=== PATIENT | male | born 1980 | race Caucasian/White ===

== ENCOUNTER 2018-08-15 16:21 | Inpatient (IN) ==
[2018-08-15] MEDS ORDERED: ceFAZolin 2 GM Premix Inj 2 GM/50 ML PIGGYBACK IV.SIG ONE (16:46)
[2018-08-15] MEDS ORDERED: fentaNYL Citrate Inj 100 MCG/2 ML Ampul IV.PUSH ONE ×3 (16:55→18:53)
[2018-08-15] MEDS ORDERED: Sod Chloride 0.9% Inj 1,000 ML IV.SIG SCH (17:00)
[2018-08-15 17:42] LABS: Baso % (Auto) 1.2 % (0.0-2.0); Eos # (Auto) 0.1 th/mm3 (0.0-0.4); Eos % (Auto) 1.7 % (0.0-4.0); Hematocrit 36.5 % (39.0-51.0); Hemoglobin 12.9 gm/dL (13.0-17.0); Lymph # (Auto) 1.2 th/mm3 (1.0-4.8); Lymph % (Auto) 32.6 % (9.0-44.0); Mean Corpuscular HGB Conc 35.3 % (32.0-36.0); Mean Corpuscular Hemoglobin 34.7 pg (27.0-34.0); Mean Corpuscular Volume 98.2 fL (80.0-100.0); Mean Platelet Volume 9.1 fL (7.0-11.0); Mono # (Auto) 0.3 th/mm3 (0.0-0.9); Neut % (Auto) 56.5 % (16.0-70.0); Platelet Count 182 th/mm3 (150-450); Red Blood Count 3.71 mil/mm3 (4.50-5.90); Red Cell Distribution Width 15.5 % (11.6-17.2); White Blood Count 3.6 th/mm3 (4.0-11.0)
--- NOTE | 2018-08-15 17:47 | ED ---
HPI General Chief Complaint: Fall Stated Complaint: Fall/injury Time Seen by Provider: 08/15/18 16:36 History of Present Illness HPI Narrative: Patient presents to the emergency department status post fall. Patient reportedly fell off of a ladder approximately 67 feet. He states that he did not hit his head he denies LOC. That he broke the fall with his right hand and his left lower extremity. He was given 10 mg IV morphine by EMS prior to ER arrival. He is complaining of pain in his affected left lower extremity. He denies chest pain, abdominal pain, neck or back pain. Related Data Home Medications Medication Instructions Recorded Confirmed No Known Home Medications 08/15/18 08/15/18 Allergies Allergy/AdvReac Type Severity Reaction Status Date / Time azithromycin Allergy Mild HIVES Verified 08/15/18 16:54 Review of Systems ROS: all other systems reviewed are negative [facility] Medical History Medical History ADHD (Acute) Surgical History Surgical History No history of previous surgery (Acute) Social History Social History Second Hand Smoke Exposure: No Smoking Status: Unknown if ever smoked How Often Do You Have a Drink Containing Alcohol: 4 or more times a week Recent Travel in [facility] within the Last 8 Weeks: No Recent Out of Country Travel within the Last 8 Weeks: No Immunization History Tetanus Immunization: <5 Years Tetanus Immunization Year if Known: 2014 Exam Narrative Exam Narrative: GENERAL: Discomfort secondary to pain SKIN: Focused skin assessment warm/dry. HEAD: Atraumatic. Normocephalic. EYES: Pupils equal and round. No scleral icterus. No injection or drainage. Extraocular muscles intact bilaterally. ENT: No nasal bleeding or discharge. Mucous membranes pink and moist. NECK: Trachea midline. No JVD. No focal C-spine tenderness CARDIOVASCULAR: Regular rate and rhythm. No murmur appreciated. RESPIRATORY: No accessory muscle use. Clear to auscultation. Breath sounds equal bilaterally. GASTROINTESTINAL: Abdomen soft, non-tender, nondistended. Hepatic and splenic margins not palpable. MUSCULOSKELETAL: Left lower extremity: Sensation intact, positive DP pulse, approx 4 in lac limited range of motion secondary to pain. Lac extends anterior mid ankle-> lat malleoli-> post aspect of ankle. No focal T or L-spine tenderness. NEUROLOGICAL: Awake and alert. No obvious cranial nerve deficits. Motor grossly within normal limits. Normal speech. PSYCHIATRIC: Appropriate mood and affect; insight and judgment normal. Course Initial Documented Vital Signs Temperature 98.8 F 08/15/18 16:30 Pulse Rate 76 08/15/18 16:30 Respiratory Rate 16 08/15/18 16:30 Blood Pressure 108/73 08/15/18 16:30 Pulse Oximetry 96 08/15/18 16:30 Last Documented Vital Signs Temperature 98.9 F 08/16/18 04:00 Pulse Rate 103 H 08/16/18 06:00 Respiratory Rate 12 08/16/18 06:16 Blood Pressure 147/91 H 08/16/18 06:00 Pulse Oximetry 94 L 08/16/18 06:00 Medical Decision Making MDM Narrative Medical decision making narrative: Patient presents to the ER status post fall. Patient placed on cardiac rehab nurse, continuous pulse ox, IV access obtained. C -collar placed. Head and C spine CT, chest/pelvis/R hand/LLE (knee-> foot)X-ray , 2 g IV ancef ordered, wound irrigated and extremity splinted by overhead crane technician, his tetanus is up to date. Discussed case with Dr Wilson, advised of patient but Xrays were pending at the time of my call. 1831: Patient given 40MEQ po KCl. Another 25mcg IV fentanyl and NS at 125cc/hr. Discussed with trauma attending, who advised he bernabe ladmit patient. Request that I get CT chest and abd/pelvis which I have ordered. Discussed with Dr Wilson, who request that I keep patient NPO and she will evaluate. Patient's corrected calcium is low, ordered 1gram IV calcium gluconate. 1950: Patient taken to CT scan and will be transported to OR immediately after. Trauma surg will f/u on CT results as well as ensure patient's electrolytes are repleted (I ordered them and spoke with him about this as patient apparently transported to OR before they were given). Medical Screen Exam Complete: Yes Emergency Medical Condition: Yes Lab Data Result diagrams: 08/15/18 17:00 08/15/18 17:00 Lab Results 08/15/18 08/15/18 08/15/18 Range/Units 17:00 17:00 17:00 WBC 3.6 L (4.0-11.0) th/mm3 RBC 3.71 L (4.50-5.90) mil/mm3 Hgb 12.9 L (13.0-17.0) gm/dL Hct 36.5 L (39.0-51.0) % MCV 98.2 (80.0-100.0) fL MCH 34.7 H (27.0-34.0) pg MCHC 35.3 (32.0-36.0) % RDW 15.5 (11.6-17.2) % Plt Count 182 (150-450) th/mm3 MPV 9.1 (7.0-11.0) fL Neut % (Auto) 56.5 (16.0-70.0) % Lymph % (Auto) 32.6 (9.0-44.0) % [place] % (Auto) 8.0 (0.0-8.0) % Eos % (Auto) 1.7 (0.0-4.0) % Baso % (Auto) 1.2 (0.0-2.0) % Neut # (Auto) 2.0 (1.8-7.7) th/mm3 Lymph # (Auto) 1.2 (1.0-4.8) th/mm3 [place] # (Auto) 0.3 (0.0-0.9) th/mm3 Eos # (Auto) 0.1 (0.0-0.4) th/mm3 Baso # (Auto) 0.0 (0.0-0.2) th/mm3 WBC Differential . Differential Comment Auto diff final PT (9.8-11.6) sec INR Ratio APTT (24.3-30.1) sec Sodium 148 H (136-145) meq/L Potassium 3.2 L (3.5-5.1) meq/L Chloride 118 H (98-107) meq/L Carbon Dioxide 24.8 (21.0-32.0) meq/L Anion Gap 5 (5-15) meq/L BUN 8 (7-18) mg/dL Creatinine 0.67 (0.60-1.30) mg/dL Estimated GFR Greater than 89 (>89) mL/min Random Glucose 84 (74-106) mg/dL Calcium 5.9 L* (8.5-10.1) mg/dL Prot Corrected Calcium 6.9 L* (8.5-10.1) mg/dL Magnesium 1.6 (1.5-2.5) mg/dL Total Bilirubin 0.3 (0.2-1.0) mg/dL AST 21 (15-37) U/L ALT 26 (12-78) U/L Alkaline Phosphatase 48 (45-117) U/L Total Protein 4.9 L (6.4-8.2) g/dL Albumin 2.8 L (3.4-5.0) g/dL 08/15/18 Range/Units 18:20 WBC (4.0-11.0) th/mm3 RBC (4.50-5.90) mil/mm3 Hgb (13.0-17.0) gm/dL Hct (39.0-51.0) % MCV (80.0-100.0) fL MCH (27.0-34.0) pg MCHC (32.0-36.0) % RDW (11.6-17.2) % Plt Count (150-450) th/mm3 MPV (7.0-11.0) fL Neut % (Auto) (16.0-70.0) % Lymph % (Auto) (9.0-44.0) % [place] % (Auto) (0.0-8.0) % Eos % (Auto) (0.0-4.0) % Baso % (Auto) (0.0-2.0) % Neut # (Auto) (1.8-7.7) th/mm3 Lymph # (Auto) (1.0-4.8) th/mm3 [place] # (Auto) (0.0-0.9) th/mm3 Eos # (Auto) (0.0-0.4) th/mm3 Baso # (Auto) (0.0-0.2) th/mm3 WBC Differential Differential Comment PT 12.2 H (9.8-11.6) sec INR 1.2 Ratio APTT 21.1 L (24.3-30.1) sec Sodium (136-145) meq/L Potassium (3.5-5.1) meq/L Chloride (98-107) meq/L Carbon Dioxide (21.0-32.0) meq/L Anion Gap (5-15) meq/L BUN (7-18) mg/dL Creatinine (0.60-1.30) mg/dL Estimated GFR (>89) mL/min Random Glucose (74-106) mg/dL Calcium (8.5-10.1) mg/dL Prot Corrected Calcium (8.5-10.1) mg/dL Magnesium (1.5-2.5) mg/dL Total Bilirubin (0.2-1.0) mg/dL AST (15-37) U/L ALT (12-78) U/L Alkaline Phosphatase (45-117) U/L Total Protein (6.4-8.2) g/dL Albumin (3.4-5.0) g/dL Imaging Data Radiologist's impression: Ankle X-Ray 08/15/18 00:00 CONCLUSION: Skin car now present with decreasing radiopaque densities around the soft tissues of the ankle. Normal alignment. Hand X-Ray 08/15/18 16:43 CONCLUSION: No acute bony abnormalities. Knee X-Ray 08/15/18 16:43 CONCLUSION: No evidence of recent bony injury. Tibia/Fibula X-Ray 08/15/18 16:43 CONCLUSION: Small radiopaque densities around the ankle as above. No tibial or fibular shaft fracture. Foot X-Ray 08/15/18 16:46 CONCLUSION: Radiopaque densities in the soft tissues characteristic of foreign bodies and possible small avulsion injuries. No dislocation. Ankle X-Ray 08/15/18 16:47 CONCLUSION: Laceration at the ankle with radiopaque densities in the soft tissues, probably foreign bodies. Questionable tiny avulsion fractures medial and lateral. Cervical Spine CT 08/15/18 16:52 CONCLUSION: 1. Mild degenerative disc disease. No acute findings. Chest X-Ray 08/15/18 16:52 CONCLUSION: No acute findings. Head CT 08/15/18 16:52 CONCLUSION: 1. No acute intracranial abnormalities. . Pelvis X-Ray 08/15/18 16:52 CONCLUSION: Negative examination. Chest CT 08/15/18 18:53 CONCLUSION: 1. Negative for acute traumatic injury to the thorax. Abdomen/Pelvis CT 08/15/18 18:55 CONCLUSION: 1. No acute findings. ECG Data Attestation: I personally reviewed and interpreted this ECG as follows: (Sinus rhythm, rate 64, normal axis, incomplete right bundle branch block, QTC 444, ) Discharge Plan Discharge Disposition Patient Disposition: 30 Still Patient Discharge Condition Condition: Stable Discharge Details Diagnosis: Open fracture, Hypocalcemia Physicians Team ED Provider: Rosalind Valdez Primary Care Provider: UNKNOWN, Attending Provider: Renetta Delgadillo Other Providers: Lacey Wilson ; Renetta Delgadillo ; Marissa Ray ; Bebo Briceño ; Ramona Durbin ; Alicia Barron ; Vasquez Morales ; Rj Contreras ; Gibson Mejia ; [employer] Discharge Interventions Interventions: ED Discharge Assessment Last Done: 08/15/18 19:47 Vital Signs Last Done: 08/15/18 18:48 Status ED Status: Left Department Discharge Information Discharge Date/Time: 08/15/18 19:50
[2018-08-15 18:02] LABS: Alanine Aminotransferase 26 U/L (12-78); Albumin 2.8 g/dL (3.4-5.0); Alkaline Phosphatase 48 U/L (45-117); Anion Gap 5 meq/L (5-15); Aspartate Aminotransferase 21 U/L (15-37); Blood Urea Nitrogen 8 mg/dL (7-18); Calcium 5.9 mg/dL (8.5-10.1); Carbon Dioxide 24.8 meq/L (21.0-32.0); Chloride 118 meq/L (98-107); Glomerular Filtration Rate Greater Than 89 mL/min (>89); Glucose,Random 84 mg/dL (74-106); Potassium 3.2 meq/L (3.5-5.1); Sodium 148 meq/L (136-145); Total Protein 4.9 g/dL (6.4-8.2)
--- NOTE | 2018-08-15 18:20 | XR ---
EXAM DATE: 08/15/2018 6:06 PM EDT AGE/SEX: 38 years / Male INDICATIONS: Patient fell 11 feet from ladder. CLINICAL DATA: This is the patient's initial encounter. Patient reports that signs and symptoms have been present for 1 day and indicates a pain score of 10/10. MEDICAL/SURGICAL HISTORY: None. None. COMPARISON: No prior exams available for comparison. FINDINGS: There is soft tissue swelling at the ankle. Radiopaque densities are present medially and laterally. Questionable small avulsion fractures of the medial and lateral malleolus. Soft tissue swelling with laceration laterally. CONCLUSION: Laceration at the ankle with radiopaque densities in the soft tissues, probably foreign bodies. Quest ionable tiny avulsion fractures medial and lateral. Electronically signed by: Sylvester Real MD 08/15/2018 6:19 PM EDT
--- NOTE | 2018-08-15 18:22 | XR ---
EXAM DATE: 08/15/2018 6:14 PM EDT AGE/SEX: 38 years / Male INDICATIONS: Patient fell 11 feet from ladder. CLINICAL DATA: This is the patient's initial encounter. Patient reports that signs and symptoms have been present for 1 day and indicates a pain score of 10/10. MEDICAL/SURGICAL HISTORY: None. None. COMPARISON: C, TIBIA FIBULA LEFT 2V, 08/15/2018. . FINDINGS: Radiopaque densities are present in the soft tissues, likely foreign bodies. Can't exclude small avul meg fractures. Lacerations present. No dislocation. CONCLUSION: Radiopaque densities in the soft tissues characteristic of foreign bodies and possible small avulsion injuries. No dislocation. Electronically signed by: Sylvester Real MD 08/15/2018 6:20 PM EDT
--- NOTE | 2018-08-15 18:23 | XR ---
EXAM DATE: 08/15/2018 6:10 PM EDT AGE/SEX: 38 years / Male INDICATIONS: Patient fell 11 feet from ladder. CLINICAL DATA: This is the patient's initial encounter. Patient reports that signs and symptoms have been present for 1 day and indicates a pain score of 10/10. MEDICAL/SURGICAL HISTORY: None. None. COMPARISON: [facility], HAND RIGHT COMPLETE ([id number]), 02/02/2011. . FINDINGS: No acute fracture or dislocation. Remote healed fracture distal fifth metacarpal. CONCLUSION: No acute bony abnormalities. Electronically signed by: Sylvester Real MD 08/15/2018 6:22 PM EDT
--- NOTE | 2018-08-15 18:24 | XR ---
EXAM DATE: 08/15/2018 6:11 PM EDT AGE/SEX: 38 years / Male INDICATIONS: Patient fell 11 feet from ladder. CLINICAL DATA: This is the patient's initial encounter. Patient reports that signs and symptoms have been present for 1 day and indicates a pain score of 10/10. MEDICAL/SURGICAL HISTORY: None. None. COMPARISON: No prior exams available for comparison. FINDINGS: Bony structures are intact and in normal alignment. Joints are intact without dislocation or signifi cant arthropathy. Osseous density is normal. Soft tissues are unremarkable. No radiopaque foreign bodies seen. CONCLUSION: No evidence of recent bony injury. Electronically signed by: Sylvester Real MD 08/15/2018 6:23 PM EDT
--- NOTE | 2018-08-15 18:26 | XR ---
EXAM DATE: 08/15/2018 6:16 PM EDT AGE/SEX: 38 years / Male INDICATIONS: Patient fell 11 feet from ladder. CLINICAL DATA: This is the patient's initial encounter. Patient reports that signs and symptoms have been present for 1 day and indicates a pain score of 10/10. MEDICAL/SURGICAL HISTORY: None. None. COMPARISON: No prior exams available for comparison. FINDINGS: No acute fracture of the mid and distal portion of the tibia and fibula. Radiopaque densities around the ankle probably represent foreign bodies. Can't exclude small avulsion injuries. Lacerations aroun d the ankle. CONCLUSION: Small radiopaque densities around the ankle as above. No tibial or fibular shaft fracture. Electronically signed by: Sylvester Real MD 08/15/2018 6:24 PM EDT
--- NOTE | 2018-08-15 18:27 | CT ---
EXAM DATE: 08/15/2018 6:14 PM EDT AGE/SEX: 38 years / Male INDICATIONS: Trauma. Fall. CLINICAL DATA: This is the patient's initial encounter. Patient reports that signs and symptoms have been present for 1 day and indicates a pain score of 0/10. MEDICAL/SURGICAL HISTORY: None. None. RADIATION DOSE: 18.54 CTDI (mGy) COMPARISON: No prior exams available for comparison. TECHNIQUE: Contiguous axial images were obtained using helical multirow detector technique. The vol umetric data was post-processed with multiplanar reconstruction in oblique axial, sagittal, and coron al planes. Using automated exposure control and adjustment of the mA and/or kV according to patient s ize, radiation dose was kept as low as reasonably achievable to obtain optimal diagnostic quality jac ges. DICOM format image data is available electronically for review and comparison. FINDINGS: No acute fracture or dislocation. No prevertebral soft tissue swelling. No bony canal or foraminal st enosis. CONCLUSION: 1. Mild degenerative disc disease. No acute findings. Electronically signed by: Sylvester Real MD 08/15/2018 6:26 PM EDT
--- NOTE | 2018-08-15 18:29 | CT ---
EXAM DATE: 08/15/2018 6:04 PM EDT AGE/SEX: 38 years / Male INDICATIONS: Trauma. Fell off ladder. CLINICAL DATA: This is the patient's initial encounter. Patient reports that signs and symptoms have been present for 1 day and indicates a pain score of 0/10. MEDICAL/SURGICAL HISTORY: None. None. RADIATION DOSE: 61.33 CTDI (mGy) COMPARISON: No prior exams available for comparison. TECHNIQUE: CT of the head without contrast. Using automated exposure control and adjustment of the mA and/or kV according to patient size, radiation dose was kept as low as reasonably achievable to ob tain optimal diagnostic quality images. DICOM format image data is available electronically for revi ew and comparison. FINDINGS: Cerebrum: The ventricles are normal for age. No evidence of midline shift, mass lesion, hemorrhage or acute infarction. No extraaxial fluid collections are seen. Posterior Fossa: The cerebellum and brainstem are intact. The 4th ventricle is midline. The cerebe llopontine angle is unremarkable. Extracranial: The visualized portion of the orbits is intact. Skull: The calvaria is intact. No evidence of skull fracture. CONCLUSION: 1. No acute intracranial abnormalities. . Electronically signed by: Sylvester Real MD 08/15/2018 6:28 PM EDT
--- NOTE | 2018-08-15 18:30 | XR ---
EXAM DATE: 08/15/2018 6:13 PM EDT AGE/SEX: 38 years / Male INDICATIONS: Patient fell 11 feet from ladder. CLINICAL DATA: This is the patient's initial encounter. Patient reports that signs and symptoms have been present for 1 day and indicates a pain score of 10/10. MEDICAL/SURGICAL HISTORY: None. None. COMPARISON: . FINDINGS: Examination of the pelvis demonstrates no evidence of fracture or dislocation. Bony mineralization i s normal. There is no widening of the sacroiliac joints. No foreign body is identified. CONCLUSION: Negative examination. Electronically signed by: Sylvester Real MD 08/15/2018 6:29 PM EDT
--- NOTE | 2018-08-15 18:30 | XR ---
EXAM DATE: 08/15/2018 6:08 PM EDT AGE/SEX: 38 years / Male INDICATIONS: Patient fell 11 feet from ladder. CLINICAL DATA: This is the patient's initial encounter. Patient reports that signs and symptoms have been present for 1 day and indicates a pain score of 10/10. MEDICAL/SURGICAL HISTORY: None. None. COMPARISON: No prior exams available for comparison. FINDINGS: A single AP view of the chest demonstrates the lungs to be symmetrically aerated without evidence of mass, infiltrate or effusion. The cardiomediastinal contours are unremarkable. Osseous structures a re intact. CONCLUSION: No acute findings. Electronically signed by: Sylvester Real MD 08/15/2018 6:29 PM EDT
[2018-08-15] MEDS ORDERED: Sod Chloride 0.9% Inj 1,000 ML IV.CONT SCH (19:00)
[2018-08-15] MEDS ORDERED: Calcium Gluconate Inj 1 GM in Dextrose 5% in Water Inj 100 ML IV.SIG ONE ×2 (19:09)
[2018-08-15 19:15] LABS: Activated Partial Thrombo Time 21.1 sec (24.3-30.1); INR 1.2 Ratio; Prothrombin Time 12.2 sec (9.8-11.6)
[2018-08-15] MEDS ORDERED: HYDROmorphone PF Inj 1 MG/ML Ampul IV.PUSH PRN (19:30)
--- NOTE | 2018-08-15 20:21 | CT ---
EXAM DATE: 08/15/2018 8:05 PM EDT AGE/SEX: 38 years / Male INDICATIONS: Fall from ladder today. CLINICAL DATA: This is the patient's initial encounter. Patient reports that signs and symptoms have been present for 1 day and indicates a pain score of 10/10. MEDICAL/SURGICAL HISTORY: None. None. ORAL CONTRAST: No oral contrast ingested. RADIATION DOSE: 5.13 CTDI (mGy) COMPARISON: No prior exams available for comparison. TECHNIQUE: Multiple contiguous axial images were obtained through the abdomen and pelvis following b olus infusion of 91 ml Omnipaque 350 (iohexol) nonionic water-soluble contrast as a cumulative dose for multiple exams. No oral contrast ingested. Using automated exposure control and adjustment of t he mA and/or kV according to patient size, radiation dose was kept as low as reasonably achievable to obtain optimal diagnostic quality images. DICOM format image data is available electronically for r eview and comparison. FINDINGS: Lung bases are clear. No acute findings in the liver, spleen, adrenals, kidneys or pancreas. No calci fied gallstones or biliary ductal dilatation. No bowel obstruction. No free air or free fluid. No adenopathy. Bladder is distended. CONCLUSION: 1. No acute findings. Electronically signed by: Sylvester Real MD 08/15/2018 8:19 PM EDT
[2018-08-15] MEDS ORDERED: Lidocaine PF 1% Inj 5 ML Syringe OTHER ONE (20:22)
--- NOTE | 2018-08-15 20:25 | CT ---
EXAM DATE: 08/15/2018 8:00 PM EDT AGE/SEX: 38 years / Male INDICATIONS: Fall from ladder today. CLINICAL DATA: This is the patient's initial encounter. Patient reports that signs and symptoms have been present for 1 day and indicates a pain score of 10/10. MEDICAL/SURGICAL HISTORY: None. None. RADIATION DOSE: 5.13 CTDI (mGy) COMPARISON: No prior exams available for comparison. TECHNIQUE: Multiple contiguous axial images were obtained through the chest during bolus infusion of 91 ml Omnipaque 350 (iohexol) nonionic water-soluble contrast as a cumulative dose for multiple exa ms. Images were obtained in suspended respiration using multiple row detector helical technique. U sing automated exposure control and adjustment of the mA and/or kV according to patient size, radiati on dose was kept as low as reasonably achievable to obtain optimal diagnostic quality images. DICOM format image data is available electronically for review and comparison. FINDINGS: No focal consolidation or effusion. There is no pleural or pericardial effusion. No hilar, mediastina l or axillary adenopathy. No acute findings in the upper abdomen. CONCLUSION: 1. Negative for acute traumatic injury to the thorax. Electronically signed by: Sylvester Real MD 08/15/2018 8:24 PM EDT
[2018-08-15] MEDS ORDERED: Docusate Sodium 100 MG Capsule PO SCH (21:00)
[2018-08-15] MEDS ORDERED: Post-op Orders (for Pharmacy) OTHER STA (21:41)
--- NOTE | 2018-08-15 21:44 | P.BOP ---
Date of procedure: 08/15/18 Procedure: I&D L ankle Application of wound vac Implants: none Anesthesia: GETA Surgeon: Lacey Wilson MD Estimated blood loss (mL): 125 Pathology: none sent Condition: stable Disposition: PACU
[2018-08-15] MEDS ORDERED: *Meperidine Inj 25 MG/ML Vial PERIprocedural Use ONLY ONE (21:56)
[2018-08-15] MEDS ORDERED: Gentamicin Consult Pharmacy 1 EACH OTHER SCH (22:00)
[2018-08-15] MEDS ORDERED: *morphine SULFATE 10 MG/ML PERIprocedure ONLY ONE ×2 (22:15→22:34)
[2018-08-15] MEDS ORDERED: fentaNYL Citrate Inj 100 MCG/2 ML Ampul ONE (22:41)
--- NOTE | 2018-08-15 22:56 | XR ---
EXAM DATE: 08/15/2018 10:47 PM EDT AGE/SEX: 38 years / Male INDICATIONS: Post I&D left ankle. CLINICAL DATA: This is the patient's initial encounter. Patient reports that signs and symptoms have been present for 1 day and indicates a pain score of 9/10. MEDICAL/SURGICAL HISTORY: None. None. COMPARISON: [facility] [place], FOOT LIMITED LEFT 2V, 08/15/2018. . FINDINGS: Skin car are present laterally and anteriorly over the ankle. Previous radiopaque densities in th e soft tissues have improved with several small residual densities remaining. Normal alignment of the ankle joint. CONCLUSION: Skin cra now present with decreasing radiopaque densities around the soft tissues of the ankle. N ormal alignment. Electronically signed by: Sylvester Real MD 08/15/2018 10:55 PM EDT
[2018-08-15] MEDS ORDERED: *HYDROmorphone PF Inj 1 MG/ML Ampul PERIprocedural Use ONLY ONE (23:09)
[2018-08-16] MEDS: ceFAZolin 2 GM Premix Inj 2 GM/50 ML PIGGYBACK IV.SIG SCH ×3 (01:02→17:37)
[2018-08-16] MEDS: HYDROmorphone PF Inj 1 MG/ML Ampul IV.PUSH PRN ×2 (02:07→05:11)
[2018-08-16] MEDS ORDERED: Chlorhexidine Gluconate 2% 1 Pack (2 Cloths) TOPICAL PRN (04:00)
[2018-08-16] MEDS ORDERED: Chlorhexidine Gluconate 2% 1 Pack (2 Cloths) TOPICAL SCH (04:00)
[2018-08-16] MEDS: Morphine Inj 4 MG/ML Vial IV.PUSH PRN ×4 (07:45→22:26)
[2018-08-16 08:15] LABS: Baso % (Auto) 0.3 % (0.0-2.0); Eos # (Auto) 0.1 th/mm3 (0.0-0.4); Eos % (Auto) 0.7 % (0.0-4.0); Hematocrit 40.1 % (39.0-51.0); Hemoglobin 13.9 gm/dL (13.0-17.0); Lymph # (Auto) 1.1 th/mm3 (1.0-4.8); Lymph % (Auto) 14.1 % (9.0-44.0); Mean Corpuscular HGB Conc 34.6 % (32.0-36.0); Mean Corpuscular Hemoglobin 34.2 pg (27.0-34.0); Mean Corpuscular Volume 98.8 fL (80.0-100.0); Mean Platelet Volume 9.7 fL (7.0-11.0); Mono # (Auto) 0.5 th/mm3 (0.0-0.9); Neut # (Auto) 6.1 th/mm3 (1.8-7.7); Neut % (Auto) 77.9 % (16.0-70.0); Platelet Count 105 th/mm3 (150-450); Red Blood Count 4.06 mil/mm3 (4.50-5.90); Red Cell Distribution Width 15.4 % (11.6-17.2); White Blood Count 7.8 th/mm3 (4.0-11.0)
--- NOTE | 2018-08-16 08:51 | P.PNOP ---
Subjective Interval history: Patient resting comfortably this morning. States his pain is relatively well controlled. Physical Exam Vital signs: Vital Signs 08/15/18 16:30 08/15/18 17:11 08/15/18 18:48 Temperature 98.8 F Pulse Rate 76 69 66 Respiratory Rate 16 15 15 Blood Pressure 108/73 106/74 126/86 Pulse Oximetry 96 100 99 08/15/18 21:56 08/15/18 22:00 08/15/18 22:15 Temperature 98.2 F Pulse Rate 115 H 110 H 100 H Respiratory Rate 22 23 23 Blood Pressure 134/85 144/90 H 138/92 H Pulse Oximetry 92 L 92 L 95 08/15/18 22:23 08/15/18 22:30 08/15/18 22:38 Temperature Pulse Rate 99 H Respiratory Rate 20 23 16 Blood Pressure 145/95 H Pulse Oximetry 92 L 08/15/18 23:00 08/16/18 00:00 08/16/18 01:02 Temperature Pulse Rate 99 H 97 H Respiratory Rate 20 20 12 Blood Pressure 143/95 H 154/95 H Pulse Oximetry 94 L 96 08/16/18 03:56 08/16/18 04:00 08/16/18 06:00 Temperature 98.9 F Pulse Rate 103 H 103 H Respiratory Rate 12 15 16 Blood Pressure 148/87 H 147/91 H Pulse Oximetry 94 L 94 L 08/16/18 06:16 08/16/18 07:30 Temperature 98.3 F Pulse Rate 98 H Respiratory Rate 12 16 Blood Pressure 143/85 H Pulse Oximetry 98 Intake & Output 08/15/18 08/16/18 08/16/18 18:59 06:59 18:59 Intake Total 1050 / 1050 950 / 950 Output Total 1974 Balance 1050 / 1050 -1025 / -1025 Weight 74.389 kg Intake: IV 1050 / 1050 150 / 150 Ofirmev Inj 1,000 mg In 100 ml 100 / 100 @ 400 mls/hr IV.SIG Q6H [facility] Rx# :[id number] NS Inj 1,000 ML @ Wide Open IV. 1000 / 1000 SIG BOLUS ROHIT Rx#:[id number] Ancef 2 GM Premix Inj 2 gm In 50 / 50 50 / 50 50 ml @ 100 mls/hr IV.SIG Q8H [facility] Rx#:[id number] Anesthesia Amount 800 / 800 Output: Estimated Blood Loss 125 / 125 Urine Amount (Catheter) 1700 / 1700 Indwelling Urethral Catheter 1700 / 1700 Wound Vac Amount 150 / 150 Left Ankle 150 / 150 Other: Mode Setting Left Ankle Continuous Narrative: Patient awake, alert, no acute distress Left lower extremity: Splint in place along with VAC. VAC with good seal. Patient does diameter positive EHL and FHL. Brisk cap refill. - Urinary Catheter Management Indwelling Urethral Catheter Cath placed during this visit: yes Reason for continuing: Hourly intake/output Insertion date: 08/15/18 Insertion time: 20:40 Results - Labs CBC & Chem 7: 08/16/18 07:35 08/15/18 17:00 Laboratory Results - last 24 hr 08/15/18 08/15/18 08/15/18 17:00 17:00 17:00 WBC 3.6 L RBC 3.71 L Hgb 12.9 L Hct 36.5 L MCV 98.2 MCH 34.7 H MCHC 35.3 RDW 15.5 Plt Count 182 MPV 9.1 Neut % (Auto) 56.5 Lymph % (Auto) 32.6 [place] % (Auto) 8.0 Eos % (Auto) 1.7 Baso % (Auto) 1.2 Neut # (Auto) 2.0 Lymph # (Auto) 1.2 [place] # (Auto) 0.3 Eos # (Auto) 0.1 Baso # (Auto) 0.0 WBC Differential . Differential Comment Auto diff final PT INR APTT Sodium 148 H Potassium 3.2 L Chloride 118 H Carbon Dioxide 24.8 Anion Gap 5 BUN 8 Creatinine 0.67 Estimated GFR Greater than 89 Random Glucose 84 Calcium 5.9 L* Prot Corrected Calcium 6.9 L* Magnesium 1.6 Total Bilirubin 0.3 AST 21 ALT 26 Alkaline Phosphatase 48 Total Protein 4.9 L Albumin 2.8 L 08/15/18 08/16/18 18:20 07:35 WBC 7.8 D RBC 4.06 L Hgb 13.9 Hct 40.1 MCV 98.8 MCH 34.2 H MCHC 34.6 RDW 15.4 Plt Count 105 L D MPV 9.7 Neut % (Auto) 77.9 H Lymph % (Auto) 14.1 [place] % (Auto) 7.0 Eos % (Auto) 0.7 Baso % (Auto) 0.3 Neut # (Auto) 6.1 Lymph # (Auto) 1.1 [place] # (Auto) 0.5 Eos # (Auto) 0.1 Baso # (Auto) 0.0 WBC Differential . Differential Comment Auto diff final PT 12.2 H INR 1.2 APTT 21.1 L Sodium Potassium Chloride Carbon Dioxide Anion Gap BUN Creatinine Estimated GFR Random Glucose Calcium Prot Corrected Calcium Magnesium Total Bilirubin AST ALT Alkaline Phosphatase Total Protein Albumin - Imaging Impressions Ankle X-Ray 08/15/18 00:00 CONCLUSION: Skin car now present with decreasing radiopaque densities around the soft tissues of the ankle. Normal alignment. Hand X-Ray 08/15/18 16:43 CONCLUSION: No acute bony abnormalities. Knee X-Ray 08/15/18 16:43 CONCLUSION: No evidence of recent bony injury. Tibia/Fibula X-Ray 08/15/18 16:43 CONCLUSION: Small radiopaque densities around the ankle as above. No tibial or fibular shaft fracture. Foot X-Ray 08/15/18 16:46 CONCLUSION: Radiopaque densities in the soft tissues characteristic of foreign bodies and possible small avulsion injuries. No dislocation. Ankle X-Ray 08/15/18 16:47 CONCLUSION: Laceration at the ankle with radiopaque densities in the soft tissues, probably foreign bodies. Questionable tiny avulsion fractures medial and lateral. Cervical Spine CT 08/15/18 16:52 CONCLUSION: 1. Mild degenerative disc disease. No acute findings. Chest X-Ray 08/15/18 16:52 CONCLUSION: No acute findings. Head CT 08/15/18 16:52 CONCLUSION: 1. No acute intracranial abnormalities. . Pelvis X-Ray 08/15/18 16:52 CONCLUSION: Negative examination. Chest CT 08/15/18 18:53 CONCLUSION: 1. Negative for acute traumatic injury to the thorax. Abdomen/Pelvis CT 08/15/18 18:55 CONCLUSION: 1. No acute findings. Assessment and Plan - Assessment and Plan 38yo M POD#1 s/p I&D L ankle with application of wound VAC 1. Nonweightbearing left lower extremity in splint. Splint to remain in place along with VAC. 2. Lovenox for DVT prophylaxis 3. Continue antibiotics for open fracture/arthrotomy 4. Plan for repeat irrigation and debridement of the left ankle with possible VAC change versus wound closure on Tuesday. I did discuss with the patient the possibility of fixation with possible pinning of his ankle should he have residual instability at the next surgery, however, likely he will be placed back into splint without any hardware placed. Nothing by mouth after midnight on with plan for surgery Tuesday.
[2018-08-16 08:54] LABS: Anion Gap 5 meq/L (5-15); Blood Urea Nitrogen 6 mg/dL (7-18); Calcium 7.4 mg/dL (8.5-10.1); Carbon Dioxide 29.7 meq/L (21.0-32.0); Chloride 104 meq/L (98-107); Glomerular Filtration Rate Greater Than 89 mL/min (>89); Glucose,Random 93 mg/dL (74-106); Potassium 3.5 meq/L (3.5-5.1); Sodium 139 meq/L (136-145)
[2018-08-16 09:11] LABS: Total Protein 6.1 g/dL (6.4-8.2)
[2018-08-16] MEDS: Enoxaparin Inj 40 MG/0.4 ML Syringe SQ SCH (10:00)
[2018-08-16] MEDS: Senna/Docusate Sodium 8.6/50 MG Tablet PO SCH ×2 (10:08→20:39)
[2018-08-16] MEDS: Multivitamin/Minerals Therapeutic Tablet PO SCH (10:08)
--- NOTE | 2018-08-16 12:04 | P.HPCC ---
History of Present Illness Primary Care Physician: UNKNOWN History of Present Illness: Health status post fall from the ladder patient sustained open left ankle fracture he was seen and worked up by the ER physician. He complains of left ankle pain he is hemodynamically normal neurologically intact Pita Coma Score of 15, ashley CT scan workup has been negative Inpatient Certification: I certify that the inpatient services were ordered in accordance with Medicare regulations governing the order. This includes certification that hospital inpatient services are reasonable and necessary and in the case of services not specified as inpatient-only under 42 CFR 419.22(n), that they are appropriately provided as inpatient services in accordance to with the 2-midnight benchmark under 43 CFR 412.3(e) Estimated Total Length of Stay (Days): 2 Plans for Post Hospital Care: Home Review of Systems All other systems reviewed negative except as stated in HPI [facility] - History History Provided By: Patient, Beamster / EMT - Medical History Medical History: Medical History (Last Reviewed 08/16/18 @ 10:16 by Zaira Jackson PT) ADHD - Surgical History Surgical History: Surgical History (Last Reviewed 08/16/18 @ 10:16 by Zaira Jackson PT) No history of previous surgery - Tobacco History Second Hand Smoke Exposure: No Smoking Status: Unknown if ever smoked - Alcohol History How Often Do You Have a Drink Containing Alcohol: 4 or more times a week - Travel History Recent Travel in the [place] Within the Last 8 Weeks: No Recent Travel Out of the Country Within the Last 8 Weeks: No - Immunization History Tetanus Immunization: <5 Years Tetanus Immunization Year if Known: 2014 Medications and Allergies Active Medications: Active Medications Enoxaparin Sodium (Lovenox Inj) 40 mg SQ DAILY@1000 ROHIT Last Admin: 08/16/18 10:00 Dose: 40 mg Sodium Chloride (Ns Inj) 1,000 mls @ 0 mls/hr IV.SIG BOLUS ROHIT Last Infusion: 08/15/18 18:10 Dose: Infused Lactated Ringer's (Lr 1000 Ml Inj) 1,000 mls @ 100 mls/hr IV.CONT .Q10H ROHIT Last Admin: 08/15/18 22:10 Dose: 100 mls/hr Acetaminophen (Ofirmev Inj) 1,000 mg in 100 mls @ 400 mls/hr IV.SIG Q6H [facility]OH[facility] Stop: 08/16/18 14:14 Last Admin: 08/16/18 07:45 Dose: 200 mls/hr Pharmacy Profile Note (Gentamicin Consult Pharmacy) 0 mls @ 0 mls/hr OTHER UNSCH [facility] Cefazolin Sodium/Dextrose (Ancef 2 Gm Premix Inj) 2 gm in 50 mls @ 100 mls/hr IV.SIG Q8H [facility] Stop: 08/18/18 17:29 Last Admin: 08/16/18 09:30 Dose: 100 mls/hr Gentamicin Sulfate 500 mg/ (Sodium Chloride) 112.5 mls @ 100 mls/hr IV.SIG ONCE ONE Stop: 08/16/18 14:07 Lactulose (Lactulose Liq) 30 ml PO DAILY PRN PRN Reason: CONSTIPATION Miscellaneous Information ([facility]) 1 each OTHER UNSCH PRN PRN Reason: SEE LABEL COMMENTS Stop: 08/16/18 21:40 Morphine Sulfate (Morphine Inj) 4 mg IV.PUSH Q3HR PRN PRN Reason: BREAKTHROUGH PAIN Last Admin: 08/16/18 07:45 Dose: 4 mg Multivitamins/Minerals (Theragran-M) 1 tab PO DAILY [facility] Last Admin: 08/16/18 10:08 Dose: 1 tab Oxycodone HCl (Roxicodone) 5 mg PO Q4H PRN PRN Reason: PAIN SCALE 3 TO 5 Last Admin: 08/16/18 07:45 Dose: 5 mg Oxycodone HCl (Roxicodone) 10 mg PO Q4H PRN PRN Reason: PAIN SCALE 6 TO 10 Last Admin: 08/16/18 11:00 Dose: 10 mg Senna/Docusate Sodium (Татьяна-Colace) 1 tab PO BID [facility] Last Admin: 08/16/18 10:08 Dose: 1 tab Sodium Chloride (Ns Flush) 2 ml IV.FLUSH BID [facility] Last Admin: 08/16/18 10:03 Dose: 2 ml Sodium Chloride (Ns Flush) 2 ml IV.FLUSH PRN PRN PRN Reason: FLUSH AFTER USING IV ACCESS Allergies Allergy/AdvReac Type Severity Reaction Status Date / Time azithromycin Allergy Mild HIVES Verified 08/15/18 16:54 Home Medications Medication Instructions Recorded Confirmed Type No Known Home Medications 08/15/18 08/15/18 History Results - Labs CBC & Chem 7: 08/16/18 07:35 08/16/18 08:25 Labs: Short CBC 08/15/18 08/16/18 Range/Units 17:00 07:35 WBC 3.6 L 7.8 D (4.0-11.0) th/mm3 Hgb 12.9 L 13.9 (13.0-17.0) gm/dL Hct 36.5 L 40.1 (39.0-51.0) % Plt Count 182 105 L D (150-450) th/mm3 BMP 08/15/18 08/16/18 17:00 08:25 Sodium 148 H 139 Potassium 3.2 L 3.5 Chloride 118 H 104 D Carbon Dioxide 24.8 29.7 BUN 8 6 L Creatinine 0.67 0.83 Calcium 5.9 L* 7.4 L* D Liver Function 08/15/18 Range/Units 17:00 Total Bilirubin 0.3 (0.2-1.0) mg/dL AST 21 (15-37) U/L ALT 26 (12-78) U/L Alkaline Phosphatase 48 (45-117) U/L Albumin 2.8 L (3.4-5.0) g/dL - Imaging Impressions Ankle X-Ray 08/15/18 00:00 CONCLUSION: Skin car now present with decreasing radiopaque densities around the soft tissues of the ankle. Normal alignment. Hand X-Ray 08/15/18 16:43 CONCLUSION: No acute bony abnormalities. Knee X-Ray 08/15/18 16:43 CONCLUSION: No evidence of recent bony injury. Tibia/Fibula X-Ray 08/15/18 16:43 CONCLUSION: Small radiopaque densities around the ankle as above. No tibial or fibular shaft fracture. Foot X-Ray 08/15/18 16:46 CONCLUSION: Radiopaque densities in the soft tissues characteristic of foreign bodies and possible small avulsion injuries. No dislocation. Ankle X-Ray 08/15/18 16:47 CONCLUSION: Laceration at the ankle with radiopaque densities in the soft tissues, probably foreign bodies. Questionable tiny avulsion fractures medial and lateral. Cervical Spine CT 08/15/18 16:52 CONCLUSION: 1. Mild degenerative disc disease. No acute findings. Chest X-Ray 08/15/18 16:52 CONCLUSION: No acute findings. Head CT 08/15/18 16:52 CONCLUSION: 1. No acute intracranial abnormalities. . Pelvis X-Ray 08/15/18 16:52 CONCLUSION: Negative examination. Chest CT 08/15/18 18:53 CONCLUSION: 1. Negative for acute traumatic injury to the thorax. Abdomen/Pelvis CT 08/15/18 18:55 CONCLUSION: 1. No acute findings. Exam Vital signs: Vital Signs 08/15/18 16:30 08/15/18 17:11 08/15/18 18:48 Temperature 98.8 F Pulse Rate 76 69 66 Respiratory Rate 16 15 15 Blood Pressure 108/73 106/74 126/86 Pulse Oximetry 96 100 99 08/15/18 21:56 08/15/18 22:00 08/15/18 22:15 Temperature 98.2 F Pulse Rate 115 H 110 H 100 H Respiratory Rate 22 23 23 Blood Pressure 134/85 144/90 H 138/92 H Pulse Oximetry 92 L 92 L 95 08/15/18 22:23 08/15/18 22:30 08/15/18 22:38 Temperature Pulse Rate 99 H Respiratory Rate 20 23 16 Blood Pressure 145/95 H Pulse Oximetry 92 L 08/15/18 23:00 08/16/18 00:00 08/16/18 01:02 Temperature Pulse Rate 99 H 97 H Respiratory Rate 20 20 12 Blood Pressure 143/95 H 154/95 H Pulse Oximetry 94 L 96 08/16/18 03:56 08/16/18 04:00 08/16/18 06:00 Temperature 98.9 F Pulse Rate 103 H 103 H Respiratory Rate 12 15 16 Blood Pressure 148/87 H 147/91 H Pulse Oximetry 94 L 94 L 08/16/18 06:16 08/16/18 07:30 Temperature 98.3 F Pulse Rate 98 H Respiratory Rate 12 16 Blood Pressure 143/85 H Pulse Oximetry 98 Intake & Output 08/15/18 08/16/18 08/16/18 18:59 06:59 18:59 Intake Total 1050 / 1050 950 / 950 Output Total 1974 Balance 1050 / 1050 -1025 / -1025 Weight 74.389 kg Intake: IV 1050 / 1050 150 / 150 Ofirmev Inj 1,000 mg In 100 ml 100 / 100 @ 400 mls/hr IV.SIG Q6H [facility] Rx# :[id number] NS Inj 1,000 ML @ Wide Open IV. 1000 / 1000 SIG BOLUS ROHIT Rx#:[id number] Ancef 2 GM Premix Inj 2 gm In 50 / 50 50 / 50 50 ml @ 100 mls/hr IV.SIG Q8H [facility] Rx#:[id number] Anesthesia Amount 800 / 800 Output: Estimated Blood Loss 125 / 125 Urine Amount (Catheter) 1700 / 1700 Indwelling Urethral Catheter 1700 / 1700 Wound Vac Amount 150 / 150 Left Ankle 150 / 150 Other: Mode Setting Left Ankle Continuous - Constitutional no acute distress - Routine HEENT Exam Head: Present: normocephalic, atraumatic Eye: Present: EOMI, PERRL, normal accommodation ENT: Present: mucous membranes moist, dentition normal, external ear normal - Routine Neck Exam Present: supple, full ROM - Routine Respiratory Exam Present: accessory muscle use, CTA bilaterally - Routine Cardiovascular Exam Present: RRR - Routine Abdominal Exam Present: soft, normoactive bowel sounds - Routine Extremities Exam Present: full ROM, pulses intact (Left ankle splint has been applied, good peripheral capillary refill) - Routine Skin Exam Present: intact - Routine Neurological Exam Present: alert, oriented X3, normal tone, normal speech Caprini VTE Risk Assessment Caprini VTE Risk Assessment: Moderate/High Risk (score >= 2) VTE Pharmacological Exception Reason: High risk for bleeding (trauma) Caprini Risk Assessment Model: Point Value = 1 Point Value = 2 Point Value = 3 Point Value = 5 Age 41-60 Minor surgery BMI > 25 kg/m2 Swollen legs Varicose veins or History of unexplained or recurrent spontaneous Oral contraceptives or hormone replacement Sepsis (< 1 month) Serious lung disease, including pneumonia (< 1 month) Abnormal pulmonary function Acute myocardial infarction Congestive heart failure (< 1 month) History of inflammatory bowel disease Medical patient at bed rest Age 61-74 Arthroscopic surgery Major open surgery (> 45 min) Laparoscopic surgery (> 45 min) Malignancy Confined to bed (> 72 hours) Immobilizing plaster cast Central venous access Age >= 75 History of VTE Family history of VTE Factor V Leiden Prothrombin [id number] Lupus anticoagulant Anticardiolipin antibodies Elevated serum homocysteine Heparin-induced thrombocytopenia Other congenital or acquired thrombophilia Stroke (< 1 month) Elective arthroplasty Hip, pelvis, or leg fracture Acute spinal cord injury (< 1 month) Prophylaxis Regimen: Total Risk Factor Score Risk Level Prophylaxis Regimen 0-1 Low Early ambulation 2 Moderate Order ONE of the following: *Sequential Compression Device (SCD) *Heparin 5000 units SQ BID 3-4 Higher Order ONE of the following medications: *Heparin 5000 units SQ TID *Enoxaparin/Lovenox 40 mg SQ daily (WT < 150 kg, CrCl > 30 mL/min) *Enoxaparin/Lovenox 30 mg SQ daily (WT < 150 kg, CrCl > 10-29 mL/min) *Enoxaparin/Lovenox 30 mg SQ BID (WT < 150 kg, CrCl > 30 mL/min) AND/OR *Sequential Compression Device (SCD) 5 or more Highest Order ONE of the following medications: *Heparin 5000 units SQ TID (Preferred with Epidurals) *Enoxaparin/Lovenox 40 mg SQ daily (WT < 150 kg, CrCl > 30 mL/min) *Enoxaparin/Lovenox 30 mg SQ daily (WT < 150 kg, CrCl > 10-29 mL/min) *Enoxaparin/Lovenox 30 mg SQ BID (WT < 150 kg, CrCl > 30 mL/min) AND *Sequential Compression Device (SCD) Assessment and Plan - Assessment and Plan Plan: Open left ankle fracture Admit to floor Orthopedic consult IV antibiotics Pain control
[2018-08-16] MEDS ORDERED: SODIUM CHLOR 0.9% IV.SIG ONE (13:00)
[2018-08-16] MEDS ORDERED: GENTAMICIN IV.SIG ONE (13:00)
--- NOTE | 2018-08-16 13:37 | ECG ---
Date Performed: 08/15/2018 Time Performed: 18:30:24 PTAGE: 38 years EKG: Sinus rhythm BORDERLINE ECG NO PREVIOUS TRACING DOCTOR: Tunde Miller Interpretating Date/Time 08/16/2018 13:35:09
[2018-08-17] MEDS: ceFAZolin 2 GM Premix Inj 2 GM/50 ML PIGGYBACK IV.SIG SCH ×3 (01:06→18:05)
[2018-08-17] MEDS: Morphine Inj 4 MG/ML Vial IV.PUSH PRN ×5 (03:47→22:09)
[2018-08-17 05:03] LABS: Baso % (Auto) 0.2 % (0.0-2.0); Eos # (Auto) 0.1 th/mm3 (0.0-0.4); Eos % (Auto) 0.9 % (0.0-4.0); Hematocrit 39.5 % (39.0-51.0); Lymph # (Auto) 0.7 th/mm3 (1.0-4.8); Lymph % (Auto) 9.2 % (9.0-44.0); Mean Corpuscular HGB Conc 35.3 % (32.0-36.0); Mean Corpuscular Hemoglobin 34.3 pg (27.0-34.0); Mean Corpuscular Volume 97.1 fL (80.0-100.0); Mean Platelet Volume 8.7 fL (7.0-11.0); Mono # (Auto) 0.6 th/mm3 (0.0-0.9); Mono % (Auto) 7.6 % (0.0-8.0); Neut # (Auto) 6.2 th/mm3 (1.8-7.7); Neut % (Auto) 82.1 % (16.0-70.0); Platelet Count 152 th/mm3 (150-450); Red Blood Count 4.07 mil/mm3 (4.50-5.90); White Blood Count 7.5 th/mm3 (4.0-11.0)
[2018-08-17 05:29] LABS: Anion Gap 9 meq/L (5-15); Blood Urea Nitrogen 4 mg/dL (7-18); Calcium 7.7 mg/dL (8.5-10.1); Carbon Dioxide 27.4 meq/L (21.0-32.0); Chloride 102 meq/L (98-107); Glomerular Filtration Rate Greater Than 89 mL/min (>89); Glucose,Random 134 mg/dL (74-106); Potassium 3.5 meq/L (3.5-5.1); Sodium 138 meq/L (136-145)
--- NOTE | 2018-08-17 07:52 | P.PNOP ---
Subjective Interval history: Patient resting comfortably. Reports mild to moderate left ankle pain. Physical Exam Vital signs: Vital Signs 08/16/18 13:49 08/16/18 16:00 08/16/18 20:00 Temperature 98.8 F 98.9 F 99.9 F H Pulse Rate 89 87 99 H Respiratory Rate 18 18 18 Blood Pressure 126/89 135/87 143/83 H Pulse Oximetry 96 97 96 08/17/18 00:00 08/17/18 03:00 08/17/18 04:00 Temperature 99.4 F 99.0 F Pulse Rate 95 H 96 H Respiratory Rate 17 17 18 Blood Pressure 144/85 H 135/92 H Pulse Oximetry 97 97 Intake & Output 08/16/18 08/17/18 08/17/18 18:59 06:59 18:59 Intake Total 1412.5 / 1412.5 1050 / 1050 Output Total 1930 / 1930 2650 / 2650 Balance -517.5 / -517.5 -1600 / -1600 Weight 74.389 kg Intake: IV 1412.5 / 1412.5 1050 / 1050 LR 1000 mL Inj 1,000 ML @ 100 1000 / 1000 1000 / 1000 mls/hr IV.CONT .Q10H [facility]OH[facility] Rx#: [id number] Ofirmev Inj 1,000 mg In 100 ml 200 / 200 @ 400 mls/hr IV.SIG Q6H [facility] Rx# :[id number] Gentamicin Inj 500 MG In NS Inj 112.5 / 112.5 100 ML @ 100 mls/hr IV.SIG ONCE ONE Rx#:[id number] Ancef 2 GM Premix Inj 2 gm In 100 / 100 50 / 50 50 ml @ 100 mls/hr IV.SIG Q8H [facility]OHIT Rx#:[id number] Output: Urine 430 / 430 2650 / 2650 Urine Amount (Catheter) 1500 / 1500 Indwelling Urethral Catheter 1500 / 1500 Other: Mode Setting Left Ankle Continuous Date of Last Bowel Movement 08/15/18 Weight On Admission 74.389 kg Narrative: Patient awake, alert, no acute distress Left lower extremity: Splint in place along with VAC. VAC with good seal. Patient does diameter positive EHL and FHL. Brisk cap refill. - Urinary Catheter Management Indwelling Urethral Catheter Cath placed during this visit: yes, but has since been removed by the nurse Reason for continuing: Decision to DC catheter Insertion date: 08/15/18 Insertion time: 20:40 Removal date: 08/16/18 Removal time: 09:25 Results - Labs CBC & Chem 7: 08/17/18 04:49 08/17/18 04:49 Laboratory Results - last 24 hr 08/16/18 08/16/18 08/16/18 07:35 08:25 08:25 WBC 7.8 D RBC 4.06 L Hgb 13.9 Hct 40.1 MCV 98.8 MCH 34.2 H MCHC 34.6 RDW 15.4 Plt Count 105 L D MPV 9.7 Neut % (Auto) 77.9 H Lymph % (Auto) 14.1 [place] % (Auto) 7.0 Eos % (Auto) 0.7 Baso % (Auto) 0.3 Neut # (Auto) 6.1 Lymph # (Auto) 1.1 [place] # (Auto) 0.5 Eos # (Auto) 0.1 Baso # (Auto) 0.0 WBC Differential . Differential Comment Auto diff final Sodium 139 Potassium 3.5 Chloride 104 D Carbon Dioxide 29.7 Anion Gap 5 BUN 6 L Creatinine 0.83 Estimated GFR Greater than 89 Random Glucose 93 Calcium 7.4 L* D Prot Corrected Calcium 7.9 L Total Protein 6.1 L D Random Gentamicin 0.2 08/16/18 08/17/18 08/17/18 23:12 04:49 04:49 WBC 7.5 RBC 4.07 L Hgb 14.0 Hct 39.5 MCV 97.1 MCH 34.3 H MCHC 35.3 RDW 15.0 Plt Count 152 D MPV 8.7 Neut % (Auto) 82.1 H Lymph % (Auto) 9.2 [place] % (Auto) 7.6 Eos % (Auto) 0.9 Baso % (Auto) 0.2 Neut # (Auto) 6.2 Lymph # (Auto) 0.7 L [place] # (Auto) 0.6 Eos # (Auto) 0.1 Baso # (Auto) 0.0 WBC Differential . Differential Comment Auto diff final Sodium 138 Potassium 3.5 Chloride 102 Carbon Dioxide 27.4 Anion Gap 9 BUN 4 L Creatinine 0.88 Estimated GFR Greater than 89 Random Glucose 134 H Calcium 7.7 L Prot Corrected Calcium Total Protein Random Gentamicin 1.6 Assessment and Plan - Assessment and Plan 38yo M POD#2 s/p I&D L ankle with application of wound VAC 1. Nonweightbearing left lower extremity in splint. Splint to remain in place along with VAC. 2. Lovenox for DVT prophylaxis 3. Continue antibiotics for open fracture/arthrotomy 4. Plan for repeat irrigation and debridement of the left ankle with possible VAC change versus wound closure, possible percutaneous fixation on Tuesday. I did discuss with the patient the possibility of fixation with possible pinning of his ankle should he have residual instability at the next surgery, however, likely he will be placed back into splint without any hardware placed. Nothing by mouth after midnight on with plan for surgery Tuesday. Risks, benefits, alternatives were discussed with the patient. I did discuss the possibility of further surgery should there be significant contamination remaining or signs of infection. I also discussed the possibility of repeat VAC application should the soft tissue envelope not be amenable to closing. Patient has voiced understanding of all of this and has consented to the procedure.
[2018-08-17] MEDS: Senna/Docusate Sodium 8.6/50 MG Tablet PO SCH ×2 (08:48→20:30)
[2018-08-17] MEDS: Multivitamin/Minerals Therapeutic Tablet PO SCH (08:48)
[2018-08-17] MEDS ORDERED: Influenza (Quadrivalent) Vaccine 0.5 ML Syringe IM ONE (09:00)
[2018-08-17] MEDS: Enoxaparin Inj 40 MG/0.4 ML Syringe SQ SCH (10:42)
[2018-08-17] MEDS ORDERED: GENTAMICIN IV.SIG SCH (15:00)
[2018-08-17] MEDS ORDERED: SODIUM CHLOR 0.9% IV.SIG SCH (15:00)
[2018-08-18] MEDS: ceFAZolin 2 GM Premix Inj 2 GM/50 ML PIGGYBACK IV.SIG SCH ×2 (00:48→08:40)
[2018-08-18] MEDS: Morphine Inj 4 MG/ML Vial IV.PUSH PRN ×5 (03:01→21:55)
[2018-08-18 05:58] LABS: Glomerular Filtration Rate Greater Than 89 mL/min (>89)
[2018-08-18] MEDS: Senna/Docusate Sodium 8.6/50 MG Tablet PO SCH ×2 (08:34→20:12)
[2018-08-18] MEDS: Multivitamin/Minerals Therapeutic Tablet PO SCH (08:34)
[2018-08-18] MEDS: Enoxaparin Inj 40 MG/0.4 ML Syringe SQ SCH (09:48)
[2018-08-18] MEDS ORDERED: ceFAZolin 1 GM Premix Inj 1 GM/50 ML FROZ.PIGGY IV.SIG ONE (13:20)
[2018-08-18] MEDS ORDERED: Tobramycin Sulfate 1,200 MG Vial (for ortho/sterile core) OTHER ONE (13:38)
[2018-08-18] MEDS ORDERED: *Meperidine Inj 25 MG/ML Vial PERIprocedural Use ONLY ONE (14:40)
[2018-08-18] MEDS ORDERED: Post-op Orders (for Pharmacy) OTHER STA (14:40)
--- NOTE | 2018-08-18 14:40 | P.OP ---
Date of procedure: 08/18/18 Procedure: Repeat irrigation and debridement left open ankle arthrotomy Repeat irrigation and debridement left open distal fibula avulsion fracture Secondary closure of complex wound Insertion of antibiotic beads Anesthesia: GETA Surgeon: Lacey Wilson MD Estimated blood loss (mL): 100 Pathology: none sent Operation and Findings: Indications for procedure: 38-year-old gentleman who sustained an open ankle arthrotomy and fracture after a fall from ladder. Patient initially underwent irrigation and debridement with application of wound VAC 3 days previously. Options of management were discussed with the patient. Recommendation for repeat irrigation and debridement with possible VAC change, possible wound closure, possible percutaneous pinning were all discussed with the patient. At this time he did consent to the above-mentioned procedure. Description of procedure: Patient was brought back to the operating room and placed supine on operating room table with all bony prominences well-padded. General anesthesia then ensued. Patient's left leg was prepped and draped in standard sterile fashion. Preoperative antibiotics were given within 1 hour of incision. A timeout was performed to identify the correct patient, side, site and procedure to be performed. The patient's VAC had been removed from the open left ankle wound. The wound appeared relatively clean with healthy bleeding tissue. Ankle stability was evaluated. There was still some lateral ligamentous laxity given the wound and ligamentous injury, however, the ankle would not dislocate easily. At this time, it was decided to not pin the tibiotalar joint. The tissue was debrided with curettes and rongeurs. The wound was then irrigated thoroughly with 6 L of normal saline laden with gentamicin. Again, the wound appeared clean without any gross contamination. All tissue appeared viable at this time. Antibiotic beads were mixed on the back table with vancomycin and tobramycin powder. These were allowed to fully cure. These were then placed into the wound. A JUANA drain was also placed deep in the wound. The large wound was then closed with PDS suture. The skin was then closed with nylon in a horizontal mattress fashion. Sterile dressings were applied along with a short leg splint. Patient was awoken from general anesthesia without complication. Disposition: Nonweightbearing left lower extremity in splint.
[2018-08-18] MEDS ORDERED: fentaNYL Citrate Inj 100 MCG/2 ML Ampul ONE (14:45)
--- NOTE | 2018-08-18 14:48 | P.PNOP ---
Subjective Interval history: POD#0 s/p repeat I&D L ankle, closure of wound POD#3 s/p I&D L ankle and application of wound VAC Physical Exam Vital signs: Vital Signs 08/17/18 16:00 08/17/18 20:00 08/18/18 00:00 Temperature 99.8 F H 102 F H 102.2 F H Pulse Rate 101 H 107 H 99 H Respiratory Rate 14 20 20 Blood Pressure 120/70 145/77 H 135/88 Pulse Oximetry 96 99 98 08/18/18 04:00 08/18/18 04:30 08/18/18 08:00 Temperature 99.5 F 100.1 F H Pulse Rate 95 H 94 H Respiratory Rate 20 17 16 Blood Pressure 132/87 126/62 Pulse Oximetry 97 96 08/18/18 12:00 08/18/18 12:39 Temperature 100.6 F H 99.4 F Pulse Rate 96 H Respiratory Rate 16 Blood Pressure 123/69 Pulse Oximetry 97 Intake & Output 08/17/18 08/18/18 08/18/18 18:59 06:59 18:59 Intake Total 1932.5 / 1932.5 400 / 400 1100 / 1100 Output Total 1875 / 1875 1400 / 1400 100 / 100 Balance 57.5 / 57.5 -1000 / -1000 1000 / 1000 Weight 88.1 kg Intake: IV 1212.5 / 1212.5 50 / 50 100 / 100 LR 1000 mL Inj 1,000 ML @ 100 1000 / 1000 mls/hr IV.CONT .Q10H [facility] Rx#: [id number] Gentamicin Inj 500 MG In NS Inj 112.5 / 112.5 100 ML @ 100 mls/hr IV.SIG Q24H [facility] Rx#:[id number] Ancef 1 GM Premix Inj 1 gm In 50 / 50 50 ml @ 0 mls/hr IV.SIG .STK- [facility] Rx#:[id number] Ancef 2 GM Premix Inj 2 gm In 100 / 100 50 / 50 50 / 50 50 ml @ 100 mls/hr IV.SIG Q8H [facility] Rx#:[id number] Oral 720 / 720 350 / 350 Anesthesia Amount 1000 / 1000 Output: Urine 1500 / 1500 1400 / 1400 Estimated Blood Loss 100 / 100 Wound Vac Amount 375 / 375 Left Ankle 375 / 375 Other: Mode Setting Left Ankle Continuous Continuous Continuous # Voids 7 Date of Last Bowel Movement 10/30/18 11/01/18 11/01/18 - Urinary Catheter Management Indwelling Urethral Catheter Cath placed during this visit: yes, but has since been removed by the nurse Reason for continuing: Decision to DC catheter Insertion date: 08/15/18 Insertion time: 20:40 Removal date: 08/16/18 Removal time: 09:25 Results - Labs CBC & Chem 7: 08/17/18 04:49 08/18/18 04:58 Laboratory Results - last 24 hr 08/18/18 04:58 Creatinine 0.87 Estimated GFR Greater than 89 Assessment and Plan - Assessment and Plan 38yo M POD#0 s/p repeat I&D left ankle with closure of wound, POD#3 s/p I&D L ankle with application of wound VAC 1. Nonweightbearing left lower extremity in splint. Splint to remain in place until follow-up. JUANA drain to be removed on postop day 2. Drain enters the ankle anteriorly and can be removed without removing splint. If needed, Carlos wrap can be removed, small slit can be made in soft roll over anterior ankle and drain removed. Carlos wrap should be reapplied. 2. Lovenox for DVT prophylaxis. Xarelto upon discharge for 2 weeks 3. Antibiotics will be completed in 24 hours now that wound is closed. 4. Elevate left lower extremity. 5. Physical therapy for mobilization 6. Patient may be discharged pending progress with therapy over the next 1-2 days. Patient should follow-up in my office in 2 weeks.
[2018-08-18] MEDS ORDERED: *Labetalol HCl Inj 100 MG/20 ML Vial PERIprocedural Use ONLY IV.PUSH ONE (14:58)
--- NOTE | 2018-08-18 15:21 | XR ---
EXAM DATE: 08/18/2018 3:09 PM EDT AGE/SEX: 38 years / Male INDICATIONS: Post op left ankle surgery CLINICAL DATA: This is the patient's initial encounter. Patient reports that signs and symptoms have been present for 1 day and indicates a pain score of 9/10. MEDICAL/SURGICAL HISTORY: None. None. COMPARISON: [facility] – [place], [place], ANKLE COMPLETE LEFT MIN 3V, 08/15/2018. . FINDINGS: 3 views of the left ankle demonstrate no fracture or dislocation. There is a surgical drain laterally adjacent to the distal fibula. Innumerable round radiopaque beads are present. Ankle mortise is inta ct. Overlying casting material is present. There is a mild generalized soft tissue swelling both medi ally and laterally. CONCLUSION: Surgical drain is present laterally adjacent to lateral malleolus with a radiopaque antibiotic beads in place. There is generalized ankle soft tissue swelling. No acute osseous abnormality is identified . Electronically signed by: Matt Reyes MD 08/18/2018 3:20 PM EDT
[2018-08-18] MEDS: ceFAZolin 1 GM Premix Inj 1 GM/50 ML FROZ.PIGGY IV.SIG SCH (21:54)
[2018-08-19] MEDS: Morphine Inj 4 MG/ML Vial IV.PUSH PRN ×2 (01:35→06:13)
[2018-08-19] MEDS: ceFAZolin 1 GM Premix Inj 1 GM/50 ML FROZ.PIGGY IV.SIG SCH ×2 (06:13→13:00)
--- NOTE | 2018-08-19 08:30 | P.PNOP ---
Subjective Interval history: Patient is awake and alert. He is ambulating with a walker independently and states his pain is well controlled. He feels ready for discharge home today Physical Exam Vital signs: Vital Signs 08/18/18 12:00 08/18/18 12:39 08/18/18 14:37 Temperature 100.6 F H 99.4 F 98.3 F Pulse Rate 96 H 110 H Respiratory Rate 16 16 Blood Pressure 123/69 138/95 H Pulse Oximetry 97 98 08/18/18 14:45 08/18/18 15:00 08/18/18 16:00 Temperature 98.5 F Pulse Rate 116 H 98 H 106 H Respiratory Rate 16 16 18 Blood Pressure 142/101 H 136/89 147/92 H Pulse Oximetry 97 97 96 08/18/18 20:00 08/19/18 00:00 08/19/18 04:00 Temperature 100.8 F H 100.2 F H 99.2 F Pulse Rate 100 H 97 H 104 H Respiratory Rate 20 17 20 Blood Pressure 133/72 144/79 H 127/80 Pulse Oximetry 98 97 99 Intake & Output 08/18/18 08/19/18 08/19/18 18:59 06:59 18:59 Intake Total 1100 / 1100 1550 / 1550 Output Total 120 / 120 Balance 980 / 980 1550 / 1550 Weight 85.3 kg Intake: IV 100 / 100 1100 / 1100 LR 1000 mL Inj 1,000 ML @ 100 1000 / 1000 mls/hr IV.CONT .Q10H [facility] Rx#: [id number] Ancef 1 GM Premix Inj 1 gm In 50 / 50 100 / 100 50 ml @ 100 mls/hr IV.SIG Q8H [facility] Rx#:[id number] Ancef 2 GM Premix Inj 2 gm In 50 / 50 50 ml @ 100 mls/hr IV.SIG Q8H [facility] Rx#:[id number] Oral 450 / 450 Anesthesia Amount 1000 / 1000 Output: Estimated Blood Loss 100 / 100 Wound Drainage 20 / 20 # 1 Left Lower Ankle JUANA Drain Other: Mode Setting Left Ankle Continuous # Voids 6 4 Date of Last Bowel Movement 08/17/18 08/17/18 Narrative: Splint is dry and intact, JUANA drain in place with minimal output, good cap refill , slight diminished sensation appreciated on distal digits, no change to preoperatively - Urinary Catheter Management Indwelling Urethral Catheter Cath placed during this visit: yes, but has since been removed by the nurse Reason for continuing: Decision to DC catheter Insertion date: 08/15/18 Insertion time: 20:40 Removal date: 08/16/18 Removal time: 09:25 Results - Labs CBC & Chem 7: 08/17/18 04:49 08/18/18 04:58 - Imaging Impressions Ankle X-Ray 08/18/18 00:00 CONCLUSION: Surgical drain is present laterally adjacent to lateral malleolus with a radiopaque antibiotic beads in place. There is generalized ankle soft tissue swelling. No acute osseous abnormality is identified. Assessment and Plan - Assessment and Plan 38yo M POD#1 s/p repeat I&D left ankle with closure of wound, POD#4 s/p I&D L ankle with application of wound VAC, Dr. Ciara Wilson 1. Nonweightbearing left lower extremity in splint. Splint to remain in place until follow-up. JUANA drain to be removed today prior to discharge, Dr. Wilson agrees with this plan. Drain enters the ankle anteriorly and can be removed without removing splint. If needed, Carlos wrap can be removed, small slit can be made in soft roll over anterior ankle and drain removed. Carlos wrap should be reapplied. 2. Aspirin for DVT prophylaxis upon discharge for 2 weeks 3. Patient has 1 more bag of antibiotic to complete prior to discharge 4. Elevate left lower extremity. 5. Physical therapy for mobilization 6. Clear for discharge from a orthopedic standpoint to home. Patient should follow-up with Dr. Wilson in 2 weeks.
[2018-08-19] MEDS: Multivitamin/Minerals Therapeutic Tablet PO SCH (08:45)
[2018-08-19] MEDS: Senna/Docusate Sodium 8.6/50 MG Tablet PO SCH (08:45)
[2018-08-19] MEDS: Enoxaparin Inj 40 MG/0.4 ML Syringe SQ SCH (10:18)
== END 2018-08-19 13:19 | disposition home or self-care (01) ==
LOC: NEPC 16:21 → NEDA 18:56 → HPAC 08-16 00:15 → N06 08-16 11:45
PROVIDERS: ADMIT Orthopaedic Surgery Orthopaedic Surgery of the Spine; ATTEND Orthopaedic Surgery Orthopaedic Surgery of the Spine

== ENCOUNTER 2018-09-28 06:00 | Inpatient (IN) ==
[2018-09-28] MEDS ORDERED: Chlorhexidine Gluconate 2% 1 Pack (2 Cloths) TOPICAL ONE (06:45)
[2018-09-28] MEDS ORDERED: Metoprolol Tartrate 25 MG Tablet PO ONE (06:45)
[2018-09-28] MEDS ORDERED: Sodium Chlor 0.9% Inj 500 ML IV.CONT ONE (06:45)
[2018-09-28] MEDS ORDERED: ceFAZolin 1 GM Premix Inj 2 GM/100 ML PIGGYBACK IV.SIG ONE (07:08)
[2018-09-28] MEDS ORDERED: Tobramycin Sulfate 1,200 MG Vial (for ortho/sterile core) OTHER ONE (07:09)
[2018-09-28] MEDS ORDERED: Post-op Orders (for Pharmacy) OTHER STA (09:29)
[2018-09-28] MEDS ORDERED: Bisacodyl 10 MG Supp RECTAL PRN (09:29)
--- NOTE | 2018-09-28 09:39 | P.OP ---
- Preoperative Diagnosis (1) Acute osteomyelitis of left talus (2) Subacute osteomyelitis, left tibia and fibula (3) Acute osteomyelitis of left calcaneus (4) Septic arthritis of left ankle (5) Open fracture Date of procedure: 09/28/18 Procedure: Irrigation and debridement of left talus osteomyelitis, irrigation and debridement of left calcaneus osteomyelitis, irrigation debridement of left tibia osteomyelitis, left ankle arthrotomy with irrigation and debridement, placement of antibiotic beads Anesthesia: GETDaniela Surgeon: Babar Gibbons MD Central Office Operator Supervisor: LONNIE Swann PA-C The surgical procedure was assisted by my physician assistant professor of nursing. My P.A. presence was necessary throughout this case for the manipulation and positioning of the surgical extremity. My P.A. was assisting me throughout the duration of this procedure. The skill set of a physician assistant professor of nursing was medically necessary to complete this procedure. During the surgical case the medical or surgical instrument maker was working at the back table and the physician assistant professor of nursing was directly assisting me. Operation and Findings: Tejinder is a 38-year-old male who sustained open dislocation of his left ankle from a fall off of a ladder. He has gone on to develop osteomyelitis and infection of the left foot and ankle. Patient was seen and evaluated preoperatively. X-rays and MRI were reviewed. Clinically and radiographically patient has evidence of developing osteomyelitis and infection. Informed consent was obtained. Operative site was marked. He is brought the operating room. He was given IV sedation and general anesthesia. Antibiotics were held until cultures were obtained. Left leg was prepped with alcohol followed by Hibiclens and draped in usual sterile fashion. Timeout procedure was performed. Procedure began with opening up the lateral traumatic wound. Subcutaneous tissue was dissected with Bovie. All sutures were removed. Peroneal tendons were identified. The subtalar joint was identified posterior to the peroneal tendons. At this point there was noted to be soft bone of the calcaneus and talus. The talus and calcaneus were debrided through this lateral incision. Curettes were used to debride bone. An excisional debridement was performed. Cultures were obtained from the talus and calcaneus bone. Soft tissue and bone were now thoroughly irrigated with sterile saline. Next attention was turned towards ankle arthrotomy. A 3 inch incision was made over the anterior medial aspect of the ankle. Subcutaneous tissue was dissected with Bovie. Arthrotomy was made just anterior to the medial malleolus. There was a small pocket of purulent fluid. Cultures were obtained from this. Fluid was also obtained from the ankle joint. Additional specimen was obtained from the tibia. The tibia was thoroughly debrided with curettes and rongeurs. An excisional debridement was performed. Synovium was also excised from the tibiotalar joint. At this point soft tissue and bone were thoroughly irrigated with pulsatile lavage. Next attention was turned towards antibody beads. 5 cc of stimulant bone cement was mixed with 1 g of vancomycin and 1.2 g tobramycin. Once the beads were set the beads were packed around the medial ankle joint. Beads were also packed around the subtalar joint in the area of the calcaneus and talus osteomyelitis. After completion of closure skin was closed with 3-0 PDS and 3- 0 nylon. Sterile dressings were applied. Patient was awakened and transferred to recovery in stable condition.
[2018-09-28] MEDS ORDERED: *Meperidine Inj 25 MG/ML Vial PERIprocedural Use ONLY ONE (10:00)
[2018-09-28] MEDS ORDERED: fentaNYL Citrate Inj 100 MCG/2 ML Ampul ONE (10:13)
[2018-09-28] MEDS ORDERED: Morphine Inj 4 MG/ML Vial ONE ×2 (10:13→10:14)
[2018-09-28] MEDS ORDERED: *morphine SULFATE 10 MG/ML PERIprocedure ONLY ONE (10:28)
--- NOTE | 2018-09-28 10:31 | XR ---
EXAM DATE: 09/28/2018 10:11 AM EST AGE/SEX: 38 years / Male INDICATIONS: Left ankle bone graft. CLINICAL DATA: This is the patient's initial encounter. Patient reports that signs and symptoms have been present for 1 day and indicates a pain score of Nonresponsive. MEDICAL/SURGICAL HISTORY: Non-responsive. Non-responsive. COMPARISON: [facility] – [place], ANKLE COMPLETE LEFT MIN 3V, 08/15/2018. . FINDINGS: 2 coned-down views of the ankle were obtained intraoperatively using a matrix camera. This demonstrat es normal alignment. The ankle mortise is intact. There is abnormal dense opacity projected over port ions of the lateral soft tissues, talus and calcaneus. There is poor bony detail. CONCLUSION: Abnormal areas of dense opacity which appear represent overlying artifact. Electronically signed by: Eddi Loredo MD 09/28/2018 10:30 AM EST
[2018-09-28] MEDS ORDERED: *HYDROmorphone PF Inj 1 MG/ML Ampul PERIprocedural Use ONLY ONE ×2 (10:49→11:25)
[2018-09-28] MEDS: Piperacil/Tazo 3.375 GM Premix 50 ML IV.SIG SCH ×2 (11:32→20:18)
[2018-09-28] MEDS: Calcium/Vitamin D 250/125 MG Tablet PO SCH ×2 (13:23→17:08)
--- NOTE | 2018-09-28 16:44 | MB ---
cc: Scott Espinal MD DATE: 09/28/2018 REQUESTING PHYSICIAN: Babar Ellis MD REASON FOR CONSULTATION: Left ankle osteomyelitis. HISTORY OF PRESENT ILLNESS: He is a 38-year-old white male who sustained a fall from 6-7 feet and fractured his ankle. The patient was admitted on 08/15/2018 after sustaining an open fracture of the ankle. He underwent surgery with irrigation and debridement of the left ankle and closure of a complex wound and insertion of antibiotic beads. He initially had a vacuum device in place and then the wound was closed. The patient was discharged from the hospital. He returns because he was having drainage coming from the wound. He states that he was also having a lot of pain. He was readmitted after he underwent irrigation and debridement of the left hallux osteomyelitis and also left calcaneus osteomyelitis and left tibia osteomyelitis along with antibiotic beads insertion. Also left calcaneus, left tibia and left talus osteomyelitis. Antibiotic beads were inserted into the wound bed. This consultation is requested for antibiotic recommendations. The patient was treated with oral antibiotics for about a week when he was discharged from the hospital on 08/19/2018. The patient denies fever, chills, nausea or vomiting. He is currently in no acute distress except for the pain. Wound cultures were taken during surgery today and the results are pending. This consult is requested for osteomyelitis. PAST MEDICAL HISTORY: ADHD. Patient had recent skin lesions of the right buttock along with a couple lesions on his foot. No culture was taken at the time that he was seen in the emergency department 6 weeks ago at [facility]. ALLERGIES: AZITHROMYCIN AND BEE VENOM. MEDICATIONS: Os-Socrates D, piperacillin/tazobactam, vancomycin, Hadley 7.5. FAMILY HISTORY: Noncontributory. SOCIAL HISTORY: The patient denies tobacco use. He denies alcohol use. He denies illicit drug use. FAMILY HISTORY: Noncontributory. REVIEW OF SYSTEMS: All systems have been reviewed and are negative, except for that mentioned in the history of present illness. PHYSICAL EXAMINATION: GENERAL: This is a well-developed male who is in no acute distress. He is awake and alert and oriented. VITAL SIGNS: Temperature 97.7, BP 113/61, respirations 16, heart rate 72. HEENT: Head is atraumatic. Extraocular movements are grossly intact. Pupils reactive to light. No icterus. Oropharynx moist mucosa without lesions. NECK: Supple. No adenopathy. LUNGS: Clear to auscultation. HEART: Regular S1 and S2, without murmurs. ABDOMEN: Bowel sounds present. Soft, nontender. RECTAL: Not performed. EXTREMITIES: Left leg is wrapped in a surgical dressing and was not removed for inspection at this time. There is no visible erythema. No edema. SKIN: No diffuse rash. NEUROLOGIC: No gross focal findings. PSYCHIATRIC: The patient is calm and cooperative. LABORATORY DATA: No laboratory data is available yet for this admission. IMPRESSION: Osteomyelitis of the left distal tibia along with left ankle involving the talus and calcaneus in patient who had traumatic injury from fall. Cultures pending. RECOMMENDATIONS: 1. Continue vancomycin. 2. Continue piperacillin/tazobactam. 3. Follow the wound culture for antibiotic choice to treat the patient. Because osteomyelitis has been present, he will need a long course of antibiotics for treatment. Thank you for this consultation. His progress will be monitored and further recommendations will be given upon followup if necessary. Scott Espinal MD FFYamil/es , 03:57 PM , 04:11 PM
[2018-09-28] MEDS: Morphine Inj 4 MG/ML Vial IV.PUSH PRN ×3 (17:07→21:07)
[2018-09-28] MEDS: Senna/Docusate Sodium 8.6/50 MG Tablet PO SCH (20:18)
[2018-09-28] MEDS: VANCOMYCIN IV.SIG SCH (20:20)
[2018-09-28] MEDS: SODIUM CHLORIDE 0.9% IV.SIG SCH (20:20)
[2018-09-28] MEDS ORDERED: Vancomycin Inj 1 GM/200 ML PIGGYBACK IV.SIG SCH (21:00)
[2018-09-29] MEDS: Morphine Inj 4 MG/ML Vial IV.PUSH PRN ×6 (01:12→22:56)
[2018-09-29] MEDS: Piperacil/Tazo 3.375 GM Premix 50 ML IV.SIG SCH ×3 (03:12→20:13)
--- NOTE | 2018-09-29 07:07 | P.PNOP ---
Subjective Interval history: POD 1 s/p I&D with Abx bead placement left ankle states pain intense and that oral pain meds not controlling very well. out of bed with walker Physical Exam Vital signs: Vital Signs 09/28/18 07:26 09/28/18 10:00 09/28/18 10:15 Temperature 98.9 F 97.7 F Pulse Rate 94 H 121 H 82 Respiratory Rate 20 20 11 L Blood Pressure 131/89 111/90 118/73 Pulse Oximetry 99 95 97 09/28/18 10:30 09/28/18 10:45 09/28/18 11:00 Temperature Pulse Rate 102 H 84 92 H Respiratory Rate 12 16 19 Blood Pressure 137/88 128/76 126/65 Pulse Oximetry 99 98 99 09/28/18 12:00 09/28/18 16:00 09/28/18 20:00 Temperature 97.7 F 97.6 F 97.6 F Pulse Rate 72 67 81 Respiratory Rate 11 L 20 18 Blood Pressure 113/61 111/67 126/79 Pulse Oximetry 95 96 97 09/29/18 00:00 09/29/18 04:00 Temperature 97.7 F 97.7 F Pulse Rate 86 79 Respiratory Rate 18 18 Blood Pressure 144/94 H 122/81 Pulse Oximetry 98 96 Intake & Output 09/28/18 09/29/18 09/29/18 18:59 06:59 18:59 Intake Total 3070 / 3070 200 / 200 Output Total 20 / 20 1900 / 1900 Balance 3050 / 3050 -1700 / -1700 Weight 86.5 kg Intake: IV 2150 / 2150 200 / 200 LR 1000 mL Inj 1,000 ML @ 30 2000 / 2000 mls/hr IV.CONT .Q24H [facility] Rx#: [id number] Zosyn 3.375 GM Premix 50 ML @ 50 / 50 100 / 100 100 mls/hr IV.SIG Q8H [facility] Rx#: [id number] Vancomycin Inj 1,000 MG In NS 100 / 100 Inj 100 ML @ 200 mls/hr IV.SIG Q12H [facility] Rx#:[id number] Ancef 1 GM Premix Inj 2 gm In 100 / 100 100 ml @ 0 mls/hr IV.SIG .STK- [facility] Rx#:[id number] Oral 920 / 920 Output: Urine 1900 / 1900 Estimated Blood Loss 20 / 20 Other: # Voids 3 Date of Last Bowel Movement 09/27/18 Narrative: LLE: +short leg splint. intact. NVI Results - Labs Microbiology 09/28/18 08:28 Tissue - Other Fungal Smear - Final No fungal elements seen 09/28/18 08:28 Tissue - Other Gram Stain - Final 09/28/18 08:28 Fluid - Synovial Fluid Fungal Smear - Final No fungal elements seen 09/28/18 08:28 Fluid - Synovial Fluid Gram Stain - Final 09/28/18 08:28 Tissue - Other Fungal Smear - Final No fungal elements seen 09/28/18 08:28 Tissue - Other Gram Stain - Final - Imaging Impressions Ankle X-Ray 09/28/18 00:00 CONCLUSION: Abnormal areas of dense opacity which appear represent overlying artifact. Assessment and Plan - Assessment and Plan 1) Left Ankle Infection s/p I&D and Abx bead placement - POD 1 -NWB -maintain splint -elevate -will monitor cultures -infectious Dz to assist with Abx choice and PICC line -once cultures finalized, will plan for PICC line and DC home -f/u with [facility] or [facility] in 2 weeks [id number] Prescription Drug Monitoring Database has been queried and verified prior to prescribing the controlled substance. Acute pain exception. This patient has normal, predicted, physiological, and time limited response to an adverse mechanical stimulus associated with surgery, trauma, or acute illness as described in my notes. There is a lack of alternative treatment options other than to include the prescribed narcotic treatment for this condition.
[2018-09-29] MEDS: Calcium/Vitamin D 250/125 MG Tablet PO SCH ×3 (08:01→17:26)
[2018-09-29] MEDS: Folic Acid 1 MG Tablet PO SCH (08:02)
[2018-09-29] MEDS: Senna/Docusate Sodium 8.6/50 MG Tablet PO SCH ×2 (08:02→20:15)
[2018-09-29] MEDS: SODIUM CHLORIDE 0.9% IV.SIG SCH (08:03)
[2018-09-29] MEDS: VANCOMYCIN IV.SIG SCH (08:03)
--- NOTE | 2018-09-29 14:57 | P.PNID ---
Subjective Remarks: Patient states that he feels okay. He has had some pain in the left leg. No fever. Wound culture pending. 38-year-old white male who sustained a fall from 6-7 feet and fractured his ankle. The patient was admitted on 08/15/2018 after sustaining an open fracture of the ankle. He underwent surgery with irrigation and debridement of the left ankle and closure of a complex wound and insertion of antibiotic beads. He initially had a vacuum device in place and then the wound was closed. The patient was discharged from the hospital. He returns because he was having drainage coming from the wound. He states that he was also having a lot of pain. He was readmitted after he underwent irrigation and debridement of the left hallux osteomyelitis and also left calcaneus osteomyelitis and left tibia osteomyelitis along with antibiotic beads insertion. Also left calcaneus, left tibia and left talus osteomyelitis. Antibiotic beads were inserted into the wound bed. This consultation is requested for antibiotic recommendations. The patient was treated with oral antibiotics for about a week when he was discharged from the hospital on 08/19/2018. Past Medical History: PAST MEDICAL HISTORY: ADHD. Allergies/Adverse Reactions: Allergies bee venom protein (honey bee) [Bee sting] Allergy (Severe, Verified 09/28/18 07: 11) Anaphylaxis azithromycin Allergy (Mild, Verified 09/28/18 07:11) HIVES Objective Vital Signs 09/28/18 16:00 09/28/18 20:00 09/29/18 00:00 Temperature 97.6 F 97.6 F 97.7 F Pulse Rate 67 81 86 Respiratory Rate 20 18 18 Blood Pressure 111/67 126/79 144/94 H Pulse Oximetry 96 97 98 09/29/18 04:00 09/29/18 07:50 09/29/18 07:55 Temperature 97.7 F 98.2 F Pulse Rate 79 89 Respiratory Rate 18 18 20 Blood Pressure 122/81 128/82 Pulse Oximetry 96 97 09/29/18 11:55 Temperature 97.8 F Pulse Rate 83 Respiratory Rate 18 Blood Pressure 125/69 Pulse Oximetry 96 Intake & Output 09/28/18 09/29/18 09/29/18 18:59 06:59 18:59 Intake Total 3070 / 3070 200 / 200 390 / 390 Output Total 1900 / 1900 820 / 820 Balance 3050 / 3050 -1700 / -1700 -430 / -430 Weight 86.5 kg Intake: IV 2150 / 2150 200 / 200 150 / 150 LR 1000 mL Inj 1,000 ML @ 30 2000 / 2000 mls/hr IV.CONT .Q24H [facility] Rx#: [id number] Zosyn 3.375 GM Premix 50 ML @ 50 / 50 100 / 100 50 / 50 100 mls/hr IV.SIG Q8H [facility] Rx#: [id number] Vancomycin Inj 1,000 MG In NS 100 / 100 100 / 100 Inj 100 ML @ 200 mls/hr IV.SIG Q12H [facility] Rx#:[id number] Ancef 1 GM Premix Inj 2 gm In 100 / 100 100 ml @ 0 mls/hr IV.SIG .STK- [facility] Rx#:[id number] Oral 920 / 920 240 / 240 Output: Urine 1900 / 1900 820 / 820 Estimated Blood Loss Other: # Voids 3 Date of Last Bowel Movement 09/27/18 09/27/18 09/28/18 08:28 Tissue - Other Gram Stain - Final 09/28/18 08:28 Tissue - Other Wound Culture - Preliminary gram negative rods 09/28/18 08:28 Fluid - Synovial Fluid Gram Stain - Final 09/28/18 08:28 Fluid - Synovial Fluid Wound Culture - Preliminary No growth in 24 hours 09/28/18 08:28 Tissue - Other Gram Stain - Final 09/28/18 08:28 Tissue - Other Wound Culture - Preliminary gram negative rods 09/28/18 08:28 Tissue - Other Fungal Smear - Final No fungal elements seen 09/28/18 08:28 Tissue - Other Fungal Culture - Pending 09/28/18 08:28 Tissue - Other Acid Fast Bacilli Smear - Pending 09/28/18 08:28 Tissue - Other Mycobacterial Culture - Pending 09/28/18 08:28 Tissue - Other Fungal Smear - Final No fungal elements seen 09/28/18 08:28 Tissue - Other Fungal Culture - Pending 09/28/18 08:28 Fluid - Synovial Fluid Fungal Smear - Final No fungal elements seen 09/28/18 08:28 Fluid - Synovial Fluid Fungal Culture - Pending 09/28/18 08:28 Tissue - Other Acid Fast Bacilli Smear - Pending 09/28/18 08:28 Tissue - Other Mycobacterial Culture - Pending 09/28/18 08:28 Fluid - Synovial Fluid Acid Fast Bacilli Smear - Pending 09/28/18 08:28 Fluid - Synovial Fluid Mycobacterial Culture - Pending Imaging: ITS Impressions Ankle X-Ray 09/28/18 00:00 CONCLUSION: Abnormal areas of dense opacity which appear represent overlying artifact. Physical Exam: PHYSICAL EXAMINATION: GENERAL: T patient in no acute distress. HEENT: Head is atraumatic. Extraocular movements are grossly intact. Pupils reactive to light. No icterus. Oropharynx moist mucosa without lesions. NECK: Supple. No adenopathy. LUNGS: Clear to auscultation. HEART: Regular S1 and S2, without murmurs. ABDOMEN: Bowel sounds present. Soft, nontender. EXTREMITIES: Left leg is wrapped in a surgical dressing and was not removed for inspection at this time. No edema. SKIN: No diffuse rash. NEUROLOGIC: No gross focal findings. PSYCHIATRIC: The patient is calm and cooperative. Assessment and Plan - Plan IMPRESSION: Osteomyelitis of the left distal tibia along with left ankle involving the talus and calcaneus in patient who had traumatic injury from fall. Cultures pending. Pulmonary has gram-negative raymon. RECOMMENDATIONS: 1. Continue vancomycin. 2. Continue piperacillin/tazobactam. 3. Await culture results to decide on antibiotics. Patient will need 6 weeks of IV antibiotics treatment.
[2018-09-30] MEDS: Piperacil/Tazo 3.375 GM Premix 50 ML IV.SIG SCH ×3 (03:23→20:32)
[2018-09-30] MEDS: Morphine Inj 4 MG/ML Vial IV.PUSH PRN ×5 (03:24→20:32)
--- NOTE | 2018-09-30 07:12 | P.PNOP ---
Subjective Interval history: POD 2 s/p I&D with Abx bead placement left ankle states significant pain. has been utilizing oral and IV meds. seen by infectious Dz yesterday Physical Exam Vital signs: Vital Signs 09/29/18 07:50 09/29/18 07:55 09/29/18 11:55 Temperature 98.2 F 97.8 F Pulse Rate 89 83 Respiratory Rate 18 20 18 Blood Pressure 128/82 125/69 Pulse Oximetry 97 96 09/29/18 16:00 09/29/18 20:00 09/30/18 00:00 Temperature 98.3 F 98.7 F 98.6 F Pulse Rate 80 89 87 Respiratory Rate 18 20 20 Blood Pressure 137/67 121/66 130/77 Pulse Oximetry 98 96 95 09/30/18 04:00 Temperature 97.6 F Pulse Rate 70 Respiratory Rate 20 Blood Pressure 119/55 L Pulse Oximetry 97 Intake & Output 09/29/18 09/30/18 09/30/18 18:59 06:59 18:59 Intake Total 1790 / 1790 100 / 100 Output Total 1720 / 1720 3 / 3 Balance 70 / 70 97 / 97 Weight 83.8 kg Intake: IV 150 / 150 100 / 100 Zosyn 3.375 GM Premix 50 ML @ 50 / 50 100 / 100 100 mls/hr IV.SIG Q8H [facility] Rx#: [id number] Vancomycin Inj 1,000 MG In NS 100 / 100 Inj 100 ML @ 200 mls/hr IV.SIG Q12H [facility] Rx#:[id number] Oral 1640 / 1640 Output: Urine 1720 / 1720 3 Other: Date of Last Bowel Movement 09/27/18 09/29/18 Narrative: LLE: +short leg splint. intact. NVI Results - Labs Microbiology 09/28/18 08:28 Tissue - Other Acid Fast Bacilli Smear - Final No acid fast bacilli seen 09/28/18 08:28 Fluid - Synovial Fluid Acid Fast Bacilli Smear - Final No acid fast bacilli seen 09/28/18 08:28 Tissue - Other Acid Fast Bacilli Smear - Final No acid fast bacilli seen 09/28/18 08:28 Tissue - Other Gram Stain - Final 09/28/18 08:28 Tissue - Other Wound Culture - Preliminary gram negative rods 09/28/18 08:28 Fluid - Synovial Fluid Gram Stain - Final 09/28/18 08:28 Fluid - Synovial Fluid Wound Culture - Preliminary No growth in 24 hours 09/28/18 08:28 Tissue - Other Gram Stain - Final 09/28/18 08:28 Tissue - Other Wound Culture - Preliminary gram negative rods 09/28/18 08:28 Tissue - Other Fungal Smear - Final No fungal elements seen Assessment and Plan - Assessment and Plan 1) Left Ankle Infection s/p I&D and Abx bead placement - POD 2 -NWB -maintain splint -elevate -will monitor cultures -infectious Dz to assist with Abx choice and PICC line -once cultures finalized, will plan for PICC line and DC home -discussed pain meds today and trying to transition to oral meds as that is what he will be discharged home with. -f/u with Edwige or [facility] in 2 weeks [facility] Prescription Drug Monitoring Database has been queried and verified prior to prescribing the controlled substance. Acute pain exception. This patient has normal, predicted, physiological, and time limited response to an adverse mechanical stimulus associated with surgery, trauma, or acute illness as described in my notes. There is a lack of alternative treatment options other than to include the prescribed narcotic treatment for this condition.
[2018-09-30] MEDS: Folic Acid 1 MG Tablet PO SCH (08:02)
[2018-09-30] MEDS: Senna/Docusate Sodium 8.6/50 MG Tablet PO SCH ×2 (08:02→20:33)
[2018-09-30] MEDS: Calcium/Vitamin D 250/125 MG Tablet PO SCH ×3 (08:02→18:09)
[2018-10-01] MEDS: Morphine Inj 4 MG/ML Vial IV.PUSH PRN ×5 (00:39→22:51)
[2018-10-01] MEDS: Piperacil/Tazo 3.375 GM Premix 50 ML IV.SIG SCH ×3 (05:43→20:51)
[2018-10-01] MEDS: Folic Acid 1 MG Tablet PO SCH (08:03)
[2018-10-01] MEDS: Calcium/Vitamin D 250/125 MG Tablet PO SCH ×3 (08:03→17:45)
[2018-10-01] MEDS: Senna/Docusate Sodium 8.6/50 MG Tablet PO SCH ×2 (08:03→20:40)
--- NOTE | 2018-10-01 08:48 | P.PNOP ---
Subjective Interval history: Still having some difficulty with pain control. Otherwise he is continuing to do well with no new complaints Physical Exam Vital signs: Vital Signs 09/30/18 12:17 09/30/18 15:39 09/30/18 20:00 Temperature 98.0 F 98.2 F 97.3 F L Pulse Rate 75 62 75 Respiratory Rate 18 16 18 Blood Pressure 118/80 116/74 134/78 Pulse Oximetry 96 98 96 10/01/18 00:00 10/01/18 07:14 Temperature 98.1 F 98 F Pulse Rate 77 65 Respiratory Rate 18 18 Blood Pressure 154/88 H 120/73 Pulse Oximetry 97 98 Intake & Output 09/30/18 10/01/18 10/01/18 18:59 06:59 18:59 Intake Total 1010 / 1010 50 / 50 50 / 50 Output Total 950 / 950 Balance 60 / 60 50 / 50 50 / 50 Weight 83.8 kg Intake: IV 50 / 50 50 / 50 50 / 50 Zosyn 3.375 GM Premix 50 ML @ 50 / 50 50 / 50 50 / 50 100 mls/hr IV.SIG Q8H [facility] Rx#: [id number] Oral 960 / 960 Output: Urine 950 / 950 Other: # Voids 1 4 Date of Last Bowel Movement 09/30/18 09/30/18 # Bowel Movements 3 Narrative: Left lower extremity: No pain with hip or knee range of motion. Intact sensation in toes with good capillary refills. Splint is clean and intact Results - Labs Microbiology 09/28/18 08:28 Fluid - Synovial Fluid Gram Stain - Final 09/28/18 08:28 Fluid - Synovial Fluid Wound Culture - Final No growth in 72 hours (aerobically and anaerobically ) 09/28/18 08:28 Tissue - Other Gram Stain - Final 09/28/18 08:28 Tissue - Other Wound Culture - Final Enterobacter cloacae Pseudomonas aeruginosa 09/28/18 08:28 Tissue - Other Gram Stain - Final 09/28/18 08:28 Tissue - Other Wound Culture - Final Enterobacter cloacae Serratia marcescens Assessment and Plan - Assessment and Plan 1) Left Ankle Infection s/p I&D and Abx bead placement - POD 3 -NWB -maintain splint -elevate -will monitor cultures -infectious Dz to assist with Abx choice and PICC line -once cultures finalized, will plan for PICC line and DC home -discussed pain meds today and trying to transition to oral meds as that is what he will be discharged home with. -f/u with Edwige or [facility] in 2 weeks [facility] Prescription Drug Monitoring Database has been queried and verified prior to prescribing the controlled substance. Acute pain exception. This patient has normal, predicted, physiological, and time limited response to an adverse mechanical stimulus associated with surgery, trauma, or acute illness as described in my notes. There is a lack of alternative treatment options other than to include the prescribed narcotic treatment for this condition.
[2018-10-02] MEDS: Morphine Inj 4 MG/ML Vial IV.PUSH PRN ×5 (03:42→22:38)
[2018-10-02] MEDS: Piperacil/Tazo 3.375 GM Premix 50 ML IV.SIG SCH (05:58)
[2018-10-02] MEDS: Folic Acid 1 MG Tablet PO SCH (08:22)
[2018-10-02] MEDS: Senna/Docusate Sodium 8.6/50 MG Tablet PO SCH ×2 (08:22→20:29)
[2018-10-02] MEDS: Calcium/Vitamin D 250/125 MG Tablet PO SCH ×3 (08:22→17:12)
--- NOTE | 2018-10-02 10:03 | P.DCO ---
Post Hospital Infusion Therapy - Infusion Therapy Location of Infusion Therapy: Home Health Care IV Infusion Order - Patient Information Patient Weight: 83.8 kg - Diagnosis (1) Acute osteomyelitis of left talus Code(s): M86.172 - Other acute osteomyelitis, left ankle and foot (2) Subacute osteomyelitis, left tibia and fibula Code(s): M86.262 - Subacute osteomyelitis, left tibia and fibula (3) Acute osteomyelitis of left calcaneus Code(s): M86.172 - Other acute osteomyelitis, left ankle and foot - Administer Medication Cefepime Dose: 2 grams IV Directions: q 12 hours Stop Treatment: 11/13/18 - Additional Information Venous Access: PICC Line Additional Instructions: [x] Peripheral flush and dressing changes per protocol [x] Implanted port and central cashier self service gasoline: * Implanted port: 10 ml Normal Saline followed by 5 ml Heparin 100 units/ml Heparin flush after each use and monthly to maintain. [] May leave port accessed during therapy. [] May leave peripheral site accessed for duration of therapy. [x] If patient has SOB or respiratory distress, check oxygen saturation. If less than 90% or clinical signs of respiratory distress, administer oxygen at 2 L/min. via nasal cannula and notify physician. [x] Anaphylaxis/Reaction orders: * Stop infusion. * Keep IV line open with saline flush. * Notify physician. * Monitor vital signs every 15 minutes until symptoms resolve. * Check Oxygen saturation; Oxygen at 2 L/min. via nasal cannula if less than 90% or clinical signs of respiratory distress. * Administer diphenhydramine (Benadryl) 25 mg IV STAT, (unless patient has received as pre-med). May repeat once, if necessary. * Solu-Cortef 250 mg IVP over 30-60 seconds, use 100 mg vials for each dissolution. * Epinephrine (1mg/1 ml) 0.3 mg subcutaneously or IVP now with any signs of respiratory distress. * Check with physician for new additional pre-med orders if patient is re- challenged or re-treated. [x] May remove PICC line when treatment complete, after confirming with Physician. [x] If the patient is admitted to the hospital, the ED, or transferred via [facility] , complete transfer form including medication reconciliation order sheet. Weekly Labs: BMP - Case Management Consult Case Management Consult-IVF: Yes - Patient Information Allergies bee venom protein (honey bee) [Bee sting] Allergy (Severe, Verified 09/28/18 07: 11) Anaphylaxis azithromycin Allergy (Mild, Verified 09/28/18 07:11) HIVES
--- NOTE | 2018-10-02 10:06 | P.PNID ---
Subjective Remarks: Patient without complaint No fever. Wound culture has Pseudomonas and Enterobacter. 38-year-old white male who sustained a fall from 6-7 feet and fractured his ankle. The patient was admitted on 08/15/2018 after sustaining an open fracture of the ankle. He underwent surgery with irrigation and debridement of the left ankle and closure of a complex wound and insertion of antibiotic beads. He initially had a vacuum device in place and then the wound was closed. The patient was discharged from the hospital. He returns because he was having drainage coming from the wound. He states that he was also having a lot of pain. He was readmitted after he underwent irrigation and debridement of the left hallux osteomyelitis and also left calcaneus osteomyelitis and left tibia osteomyelitis along with antibiotic beads insertion. Also left calcaneus, left tibia and left talus osteomyelitis. Antibiotic beads were inserted into the wound bed. This consultation is requested for antibiotic recommendations. The patient was treated with oral antibiotics for about a week when he was discharged from the hospital on 08/19/2018. Past Medical History: ADHD. Allergies/Adverse Reactions: Allergies bee venom protein (honey bee) [Bee sting] Allergy (Severe, Verified 09/28/18 07: 11) Anaphylaxis azithromycin Allergy (Mild, Verified 09/28/18 07:11) HIVES Objective Vital Signs 10/01/18 11:53 10/01/18 16:28 10/01/18 20:00 Temperature 98.1 F 98.7 F 98.9 F Pulse Rate 81 79 87 Respiratory Rate 20 18 18 Blood Pressure 130/71 137/67 128/72 Pulse Oximetry 96 98 97 10/02/18 00:00 10/02/18 04:00 10/02/18 07:50 Temperature 98.1 F 97.3 F L 97.3 F L Pulse Rate 78 89 89 Respiratory Rate 18 18 20 Blood Pressure 123/62 125/76 120/73 Pulse Oximetry 97 97 Intake & Output 10/01/18 10/02/18 10/02/18 18:59 06:59 18:59 Intake Total 1060 / 1060 50 / 50 50 / 50 Output Total 650 / 650 Balance 410 / 410 50 / 50 50 / 50 Weight 83.8 kg 83.8 kg Intake: IV 100 / 100 50 / 50 50 / 50 Zosyn 3.375 GM Premix 50 ML @ 100 / 100 50 / 50 50 / 50 100 mls/hr IV.SIG Q8H [facility] Rx#: [id number] Oral 960 / 960 Output: Urine 650 / 650 Other: Date of Last Bowel Movement 10/01/18 10/01/18 # Bowel Movements 1 09/28/18 08:28 Fluid - Synovial Fluid Gram Stain - Final 09/28/18 08:28 Fluid - Synovial Fluid Wound Culture - Final No growth in 72 hours (aerobically and anaerobically ) 09/28/18 08:28 Tissue - Other Gram Stain - Final 09/28/18 08:28 Tissue - Other Wound Culture - Final Enterobacter cloacae Pseudomonas aeruginosa 09/28/18 08:28 Tissue - Other Gram Stain - Final 09/28/18 08:28 Tissue - Other Wound Culture - Final Enterobacter cloacae Serratia marcescens 09/28/18 08:28 Tissue - Other Acid Fast Bacilli Smear - Final No acid fast bacilli seen 09/28/18 08:28 Tissue - Other Mycobacterial Culture - Pending 09/28/18 08:28 Fluid - Synovial Fluid Acid Fast Bacilli Smear - Final No acid fast bacilli seen 09/28/18 08:28 Fluid - Synovial Fluid Mycobacterial Culture - Pending 09/28/18 08:28 Tissue - Other Acid Fast Bacilli Smear - Final No acid fast bacilli seen 09/28/18 08:28 Tissue - Other Mycobacterial Culture - Pending 09/28/18 08:28 Tissue - Other Fungal Smear - Final No fungal elements seen 09/28/18 08:28 Tissue - Other Fungal Culture - Pending Imaging: ITS Impressions Ankle X-Ray 09/28/18 00:00 CONCLUSION: Abnormal areas of dense opacity which appear represent overlying artifact. Physical Exam: PHYSICAL EXAMINATION: GENERAL: patient in no acute distress. HEENT: No icterus. Oropharynx moist mucosa without lesions. NECK: Supple. No adenopathy. LUNGS: Clear to auscultation. HEART: Regular S1 and S2, without murmurs. ABDOMEN: Bowel sounds present. Soft, nontender. EXTREMITIES: Left leg is wrapped in a surgical dressing. No edema. SKIN: No diffuse rash. NEUROLOGIC: No gross focal findings. PSYCHIATRIC: Calm and cooperative. Assessment and Plan (1) Acute osteomyelitis of left talus Status: Acute Code(s): M86.172 - Other acute osteomyelitis, left ankle and foot (2) Subacute osteomyelitis, left tibia and fibula Status: Acute Code(s): M86.262 - Subacute osteomyelitis, left tibia and fibula (3) Acute osteomyelitis of left calcaneus Status: Acute Code(s): M86.172 - Other acute osteomyelitis, left ankle and foot - Plan IMPRESSION: Osteomyelitis of the left distal tibia along with left ankle involving the talus and calcaneus in patient who had traumatic injury from fall. Culture has Pseudomonas and Enterobacter. RECOMMENDATIONS: 1. Stop vancomycin. 2. Stop piperacillin/tazobactam. 3. IV cefepime until November 05, 2018. PICC line ordered for IV antibiotics. Case management consulted to arrange antibiotics. IV antibiotics written on outpatient infusion form. Patient can be discharge when antibiotics are arranged. Follow-up with orthopedics.
[2018-10-02 14:04] LABS: Baso % (Auto) 0.4 % (0.0-2.0); Eos # (Auto) 0.4 th/mm3 (0.0-0.4); Eos % (Auto) 4.8 % (0.0-4.0); Hematocrit 41.6 % (39.0-51.0); Hemoglobin 14.8 gm/dL (13.0-17.0); Lymph # (Auto) 1.8 th/mm3 (1.0-4.8); Lymph % (Auto) 23.6 % (9.0-44.0); Mean Corpuscular HGB Conc 35.5 % (32.0-36.0); Mean Corpuscular Hemoglobin 33.5 pg (27.0-34.0); Mean Corpuscular Volume 94.5 fL (80.0-100.0); Mean Platelet Volume 9.1 fL (7.0-11.0); Mono # (Auto) 0.7 th/mm3 (0.0-0.9); Mono % (Auto) 8.8 % (0.0-8.0); Neut # (Auto) 4.7 th/mm3 (1.8-7.7); Neut % (Auto) 62.4 % (16.0-70.0); Platelet Count 196 th/mm3 (150-450); Red Cell Distribution Width 13.5 % (11.6-17.2); White Blood Count 7.5 th/mm3 (4.0-11.0)
[2018-10-02 14:28] LABS: Carbon Dioxide 33.7 meq/L (21.0-32.0); Potassium 4.3 meq/L (3.5-5.1)
[2018-10-02] MEDS ORDERED: Heparin Central Flush 100 UNIT/ML 5 ML Vial IV.FLUSH PRN (17:24)
--- NOTE | 2018-10-03 07:13 | P.DCO ---
- Nursing Nursing: Other (picc line management and care) - Certification Need for Home Health services: I have seen patient Tejinder Castillo on 10/03/18. My clinical findings support the need for the requested home health care services because: Need for Home Health Services: Limited mobility due to disease progression Homebound Certification: I certify that my clinical findings support that this patient is homebound because: Homebound Certification: Post-op weakness
--- NOTE | 2018-10-03 07:14 | P.PNOP ---
Subjective Interval history: s/p I&D left ankle doing better. states pain improved. reports has not used morphine overnight. received picc line yesterday Physical Exam Vital signs: Vital Signs 10/02/18 07:50 10/02/18 11:35 10/02/18 15:10 Temperature 97.3 F L 98.2 F Pulse Rate 89 76 Respiratory Rate 20 20 16 Blood Pressure 120/73 117/74 Pulse Oximetry 97 10/02/18 16:00 10/02/18 20:00 10/03/18 00:00 Temperature 98.2 F 97.6 F 98.5 F Pulse Rate 84 89 82 Respiratory Rate 20 20 20 Blood Pressure 120/77 107/59 L 116/68 Pulse Oximetry 98 99 97 10/03/18 04:00 Temperature 97.6 F Pulse Rate 91 H Respiratory Rate 20 Blood Pressure 124/70 Pulse Oximetry 100 Intake & Output 10/02/18 10/03/18 10/03/18 18:59 06:59 18:59 Intake Total 390 / 390 Output Total 250 / 250 200 / 200 Balance 140 / 140 -200 / -200 Weight 83.8 kg 82.9 kg Intake: IV 150 / 150 Maxipime Inj 2,000 MG In NS Inj 100 / 100 100 ML @ 200 mls/hr IV.SIG Q12H [facility] Rx#:[id number] Zosyn 3.375 GM Premix 50 ML @ 50 / 50 100 mls/hr IV.SIG Q8H [facility] Rx#: [id number] Oral 240 / 240 Output: Urine 250 / 250 200 / 200 Other: # Voids 1 Date of Last Bowel Movement 10/02/18 Narrative: LLE: +splint. intact. NVI Results - Labs CBC & Chem 7: 10/02/18 13:05 10/02/18 13:05 Laboratory Results - last 24 hr 10/02/18 10/02/18 13:05 13:05 WBC 7.5 RBC 4.40 L Hgb 14.8 Hct 41.6 MCV 94.5 MCH 33.5 MCHC 35.5 RDW 13.5 Plt Count 196 MPV 9.1 Neut % (Auto) 62.4 Lymph % (Auto) 23.6 [place] % (Auto) 8.8 H Eos % (Auto) 4.8 H Baso % (Auto) 0.4 Neut # (Auto) 4.7 Lymph # (Auto) 1.8 [place] # (Auto) 0.7 Eos # (Auto) 0.4 Baso # (Auto) 0.0 WBC Differential . Differential Comment Auto diff final Sodium 141 Potassium 4.3 Chloride 103 Carbon Dioxide 33.7 H Anion Gap 4 L BUN 12 Creatinine 1.12 Estimated GFR 74 L Random Glucose 87 Calcium 9.0 Assessment and Plan - Problem List (1) Acute osteomyelitis of left talus Code(s): M86.172 - Other acute osteomyelitis, left ankle and foot Status: Acute - Assessment and Plan 1) Left Ankle Infection s/p I&D and Abx bead placement - POD 5 -NWB -maintain splint -elevate -cultures finalized for enterobacter, pseudomonas, and serratia -infectious Dz to assist with Abx choice and PICC line -plan for DC home today with C -f/u with Edwige or MIR in 2 weeks [facility] Prescription Drug Monitoring Database has been queried and verified prior to prescribing the controlled substance. Acute pain exception. This patient has normal, predicted, physiological, and time limited response to an adverse mechanical stimulus associated with surgery, trauma, or acute illness as described in my notes. There is a lack of alternative treatment options other than to include the prescribed narcotic treatment for this condition.
[2018-10-03 08:09] VITALS: BP 120/80; PULSE 66; RESP 16; TEMP 98.9; O2SAT 98
[2018-10-03] MEDS: Folic Acid 1 MG Tablet PO SCH (08:35)
[2018-10-03] MEDS: Senna/Docusate Sodium 8.6/50 MG Tablet PO SCH (08:35)
[2018-10-03] MEDS: Calcium/Vitamin D 250/125 MG Tablet PO SCH (08:35)
[2018-10-03] MEDS: Morphine Inj 4 MG/ML Vial IV.PUSH PRN (08:36)
[2018-10-03] MEDS ORDERED: Heparin Central Flush 100 UNIT/ML 5 ML Vial IV.FLUSH SCH (09:00)
== END 2018-10-03 12:03 | disposition home or self-care (01) ==
LOC: HSDC 06:00 → HSDI 09:29 → N05 12:51
PROVIDERS: ADMIT Orthopaedic Surgery Orthopaedic Trauma; ATTEND Orthopaedic Surgery Orthopaedic Trauma
PROC: ORIFANK (2018-09-28 07:45)